=== PATIENT | male | born 1985 | race Caucasian/White ===

== ENCOUNTER 2017-05-07 19:11 | Emergency (ER) | payer OTHER ==
[~2017-05-07] VITALS: Ht 165.1 cm; Wt 82.2 kg
[~2017-05-07 19:11] MED LIST: ABL5 PO; ADD/10 PO; EFFSR150 PO; FENO48TA9 PO
[2017-05-07 19:14] VITALS: BP 147/104; PULSE 79; TEMP 36.7; O2SAT 99; Ht 165.1 cm; Wt 82.2 kg
[2017-05-07] MEDS ORDERED: OXYCODONE HCL IR 5 MG TAB (IMMEDIATE RELEASE) PO STA (19:24)
[2017-05-07] MEDS ORDERED: OXYCODONE IR HOME PACK PO STA (19:56)
--- NOTE | 2017-05-07 20:15 | DIAGNOSTIC IMAGING REPORT ---
LEFT HAND MIN 3 VIEWS ROUTINE HISTORY: 32 years-old Male left 5th digit pain s/p striking window COMPARISON: None available TECHNIQUE: 3 views of the left hand FINDINGS: There is an acute mildly impacted and angulated fracture involving the distal metadiaphyseal portion of the fifth metacarpal with apex dorsal angulation of approximately 20 degrees. No significant displacement. Moderate surrounding soft tissue swelling is noted. No additional acute fracture or dislocation. No opaque foreign body. IMPRESSION: Acute mildly impacted and angulated fracture of the distal fifth metadiaphyseal metacarpal. The above report was generated using voice recognition software. It may contain grammatical, syntax or spelling errors. Electronically signed by: Ranjan Grimes M.D. 05/07/2017 8:14 PM Dictated Date/Time: 05/07/2017 8:12 PM
[2017-05-07] MEDS ORDERED: OXYC1TAB3 PO (20:18)
--- NOTE | 2017-05-07 20:18 | EMERGENCY ROOM VISIT NOTE ---
History First contact with patient: 19:20 Chief Complaint: HAND PAIN/INJURY Stated Complaint: PAIN IN LEFT HAND History of Present Illness The patient is a 32 year old male who presents to the Emergency Room via private vehicle with complaints of "pain and left hand". The patient states that just prior to arrival, he was applying [place] hot sauce, the food, and immediately began feeling a burning sensation in his mouth, and swung his left hand and struck the window accidentally. He is now having left hand pain at the base of the left fifth metacarpal. He rates the current pain as a 9.5/10. He is right-handed. Review of Systems A complete 6-point Review of Systems was discussed with the patient, with pertinent positives and negatives listed in the History of Present Illness. All remaining Review of Systems questions can be considered negative unless otherwise specified. Past Medical/Surgical History No pertinent. Social History Smoking Status: Current Every Day Smoker Marital Status: single Occupation Status: employed Current/Historical Medications Scheduled PRN Oxycodone Ir (Roxicodone Ir), 1-2 TAB PO Q6 PRN for Pain Physical Exam Vital Signs Date Time Temp Pulse Resp B/P (MAP) Pulse Ox O2 Delivery O2 Flow Rate FiO2 05/07/17 19:14 36.7 79 18 147/104 99 Room Air Physical Exam VITAL SIGNS - Vital signs and nursing notes were reviewed. Patient is afebrile , hypertensive at 147/104, non-tachycardic and is saturating well on room air at 99%. GENERAL -32-year-old male appearing his stated age who is in no acute distress. Communicates well with provider and answers questions appropriately. SKIN - Without rashes. No petechial rashes. There is slight edema noted over the base of the left fifth metacarpal. HEAD - NC/AT. EXTREMITIES - No clubbing or peripheral cyanosis. No pretibial edema present. He is neurovascularly intact in the extremity is. Palpable deformity is noted above. +5/5 strength noted in UE/LE bilaterally. Medical Decision & Procedures ER Provider Diagnostic Interpretation: LEFT HAND MIN 3 VIEWS ROUTINE HISTORY: 32 years-old Male left 5th digit pain s/p striking window COMPARISON: None available TECHNIQUE: 3 views of the left hand FINDINGS: There is an acute mildly impacted and angulated fracture involving the distal metadiaphyseal portion of the fifth metacarpal with apex dorsal angulation of approximately 20 degrees. No significant displacement. Moderate surrounding soft tissue swelling is noted. No additional acute fracture or dislocation. No opaque foreign body. IMPRESSION: Acute mildly impacted and angulated fracture of the distal fifth metadiaphyseal metacarpal. The above report was generated using voice recognition software. It may contain grammatical, syntax or spelling errors. Electronically signed by: Ranjan Grimes M.D. 05/07/2017 8:14 PM Dictated Date/Time: 05/07/2017 8:12 PM Medications Administered Medications (Trade) Dose Ordered Sig/Umair Route Start Time Stop Time Status Last Admin Dose Admin Oxycodone HCl (Roxicodone Immediate Rel Tab) 10 mg NOW STAT PO 05/07/17 19:24 05/07/17 19:26 DC 05/07/17 19:36 10 MG Medical Decision Patient was seen and evaluated as above. After obtaining a thorough history and physical examination radiographs were obtained, and he was given 10 mg of oxycodone immediate release. He is reevaluated, was feeling slightly better with hand radiograph results as above. Prompt ulnar gutter Ortho-Glass splint was applied with good fit. He is reevaluated and feeling slightly better. 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 I will provide him with a work excuse in the time being. He is to follow-up with orthopedics. He is to return for worsening. He is neurovascularly intact post- splinting. He was educated upon worrisome symptoms which to return, had questions about discharge, and was discharged home in good condition. He will be given a short course of pain medication. In the evaluation and treatment of this patient, the following differential diagnoses were considered: Wrist Sprain, Wrist Fracture, Wrist Dislocation, Scapholunate Dissociation, Carpal Fracture, Metacarpal Fracture, Radial Styloid Process Fracture, Ulnar Styloid Process Fracture, or Carpal Tunnel Syndrome. [place] Drug Monitoring Program Search Results: patient reviewed within database, no issues identified Medication Reconcilliation Current Medication List: was personally reviewed by me Blood Pressure Screening Patient's blood pressure: Elevated blood pressure Blood pressure disposition: Elevated BP felt to be situational Impression Primary Impression: Closed fracture of 5th metacarpal Departure Information Dispostion Home / Self-Care Condition GOOD Prescriptions Oxycodone Ir (Roxicodone Ir) 5 Mg Tab 1-2 TAB PO Q6 Y for Pain, #15 TAB For Initial Treatment Prov: Cipriano Turcios PA-C 05/07/17 Referrals Carlitos Maddox M.D. (MEDICAL) (PCP) Torito Maki D.O. Patient Instructions My [facility] Additional Instructions You have been treated in the Emergency Department for Wrist Pain/hand pain. You have received pain medicine in the emergency department which impairs your ability to operate a vehicle. It is illegal for you to drive after receiving these medicines. You have been prescribed Oxy IR to be used for pain control. This is a narcotic medication. You cannot drive or consume alcohol while on this medicine. This medicine should only be used for pain that cannot be controlled with over-the- counter pain medicines. For pain control, you can use the following [id number] medicines (if >12 yo): - Regular strength (325mg/tab) Tylenol (acetaminophen) 2 tabs every 4-6 hours as needed. Do not exceed 12 tablets in a 24 hour period. Avoid taking more than 3 grams (3000 mg) of Tylenol per day. This includes any other sources of acetaminophen you may take on a regular basis. - Regular strength (200 mg/tab) Advil (ibuprofen) 1-2 tabs every 4-6 hours as needed. Do not exceed a dose of 3200 mg per day. If this is a recent injury (<24 hrs), ice can be applied to the area of pain for the first 3 days to help decrease pain and inflammation. You have been provided the number for an Orthopaedic Surgeon. You should call this number as soon as possible to establish a follow-up visit from today's Emergency Department visit. Keep the brace/splint in place until evaluated by Orthopedics. Return to the Emergency Department if your current symptoms worsen despite treatment course outlined above, or if you develop any of the following symptoms : intractable pain despite aforementioned treatment course or new onset of numbness or tingling of the fingers. Please return to the emergency department with any/concerning symptoms.
== END 2017-05-07 20:33 | disposition home or self-care (01) ==
LOC: C.EDB 19:13 → C.EDD 20:33
DX: S62.357A Nondisplaced fracture of shaft of fifth metacarpal bone, left hand, initial encounter for closed fracture (principal); W22.09XA Striking against other stationary object, initial encounter; F17.210 Nicotine dependence, cigarettes, uncomplicated

== ENCOUNTER 2017-09-24 13:07 | Emergency (ER) | payer OTHER ==
[~2017-09-24] VITALS: Ht 165.1 cm; Wt 79.2 kg
[~2017-09-24 13:07] MED LIST changes: -ABL5 PO; -ADD/10 PO; -EFFSR150 PO; -FENO48TA9 PO; +OXYC1TAB3 PO
[2017-09-24 13:27] VITALS: Ht 165.1 cm; Wt 79.2 kg
[2017-09-24] MEDS ORDERED: ALBUT/IPRATROP 3MG/0.5MG NEB 3 ML VIAL INH STA (14:58)
[2017-09-24 15:10] VITALS: BP 132/92; PULSE 81; TEMP 37.4; O2SAT 99
--- NOTE | 2017-09-24 15:26 | DIAGNOSTIC IMAGING REPORT ---
CHEST 2 VIEWS ROUTINE CLINICAL HISTORY: productive cough dyspnea COMPARISON STUDY: 06/02/2009 FINDINGS: The bones soft tissues and hemidiaphragms are normal. The cardiomediastinal silhouette is normal. The lungs are clear. The pulmonary vasculature is normal. IMPRESSION: Negative chest. The above report was generated using voice recognition software. It may contain grammatical, syntax or spelling errors. Electronically signed by: Christopher Stewart M.D. 09/24/2017 3:24 PM Dictated Date/Time: 09/24/2017 3:24 PM
--- NOTE | 2017-09-24 15:39 | EMERGENCY ROOM VISIT NOTE ---
History First contact with patient: 14:49 Chief Complaint: COUGH Stated Complaint: COUGH, SNEEZING, CHEST PAIN, FEVER, PAIN W COUGH Nursing Triage Summary: "I have an intense cough" since Thursday. Headache, joint pain, burning with cough, bodyaches, SOB. productive cough at times. took Tylenol at 0530 History of Present Illness The patient is a 32 year old male who presents to the Emergency Room with complaints of a vicious cough since Thursday. The patient states he has been sick for the past 4 days. The cough is occasionally productive of phlegm, but not always. He states he feels that his entire back muscles have been strained and he is noticing some straining in his chest wall with coughing. The patient states he has also been experiencing sore throat, chills, intermittent fever, the highest of 1-1.7F, runny nose, sneezing, running in the chest, difficulty breathing, nausea, loose stool, and vomiting associated with coughing. The patient states he has been taking honey, and other natural OTC remedies, and yesterday began taking OTC cold and flu medication which does have acetaminophen. He took one dose of cold medicine yesterday and half a dose today to proximal minimally 5:30 this morning. The patient did get an influenza vaccination this year. He denies any urinary symptoms or abdominal pain. Review of Systems A complete 10 point review of systems was reviewed with the patient with pertinent positives and negatives as per history of present illness. All else were negative. Past Medical/Surgical History None Social History Smoking Status: Current Every Day Smoker Smokeless Tobacco Use: No Alcohol Use: other (0.5 pint vodka per day) Drug Use: none Marital Status: single Housing Status: lives with family Occupation Status: employed Current/Historical Medications Scheduled PRN Albuterol Hfa (Ventolin Hfa), 2 PUFFS INH QID PRN for Wheezing Benzonatate (Tessalon Perles), 200 MG PO TID PRN for Cough Physical Exam Vital Signs Date Time Temp Pulse Resp B/P (MAP) Pulse Ox O2 Delivery O2 Flow Rate FiO2 09/24/17 15:10 37.4 81 132/92 99 Nebulizer 09/24/17 13:31 97 Room Air 09/24/17 13:27 37.2 94 20 144/103 99 Room Air Physical Exam VITALS: Vitals are noted on the nurse's note and reviewed by myself. Vital signs stable. GENERAL: This is a 32-year-old white male, in no acute distress, nondiaphoretic , well-developed well-nourished. SKIN: The skin was without rashes, erythema, edema, or bruising. There is no tenting of the skin. Capillary reflex less than 2 seconds. HEAD: Normocephalic atraumatic. EARS: External auditory canals clear, tympanic membranes pearly orr without erythema or effusion bilaterally. EYES: Pupils equal round and reactive to light and accommodation. Conjunctivae without injection, sclerae without icterus. Extraocular movements intact. NOSE: Patent, turbinates without inflammation, but rhinorrhea noted. No sinus tenderness. MOUTH: Mucous membranes moist. Tonsils are not enlarged. Pharynx without erythema or exudate. Uvula midline. Airway patent. Tongue does not deviate. NECK: Supple without nuchal rigidity. No lymphadenopathy. No thyromegaly. Cervical spine is nontender. No JVD. HEART: Regular rate and rhythm without murmurs gallops or rubs. LUNGS: Clear to auscultation bilaterally without wheezes, rales or rhonchi. No dullness to percussion. No retractions or accessory muscle use. ABDOMEN: Positive bowel sounds x 4. Normal tympanic percussion. Soft, nontender, without masses or organomegaly. Chavez sign negative. No guarding or rebound tenderness. MUSCULOSKELETAL: No muscle atrophy, erythema, or edema noted. Full range of motion without joint tenderness in all extremities. No tenderness to palpation. Normal gait. Strength 5/5 throughout. NEURO: Patient was alert and oriented to person place and time. Normal sensation to light and sharp touch. Deep tendon reflexes 2+ throughout. No focal neurological deficits. Medical Decision & Procedures ER Provider Diagnostic Interpretation: CHEST 2 VIEWS ROUTINE CLINICAL HISTORY: productive cough dyspnea COMPARISON STUDY: 06/02/2009 FINDINGS: The bones soft tissues and hemidiaphragms are normal. The cardiomediastinal silhouette is normal. The lungs are clear. The pulmonary vasculature is normal. IMPRESSION: Negative chest. The above report was generated using voice recognition software. It may contain grammatical, syntax or spelling errors. Electronically signed by: Christopher Stewart M.D. 09/24/2017 3:24 PM Dictated Date/Time: 09/24/2017 3:24 PM Medications Administered Medications (Trade) Dose Ordered Sig/Umair Route Start Time Stop Time Status Last Admin Dose Admin Albuterol/ Ipratropium (Duoneb) 3 ml NOW STAT INH 09/24/17 14:58 09/24/17 15:00 DC 09/24/17 15:06 3 ML ED Course The patient was seen and evaluated as above. Chest x-ray ordered and performed. This was reviewed by myself and radiologist. Findings noted above. The patient was given DuoNeb treatment. He did note improvement in his symptoms with this medication. I discussed findings of workup with the patient at bedside. I did provide him with the option for performing influenza testing, however because his symptoms have been ongoing for 4 days, he would not qualify for treatment anyway. The patient declines testing. Discharge instructions reviewed, the patient was discharged home in good condition. Medical Decision This is a 32-year-old male patient presents to the emergency department today complaining of illness 4 days. He states he has been experiencing increased failure cough sometimes with and sometimes without coughing up sputum. Patient states he has been experiencing some severe muscle pains in his back and chest. He has had a sore throat, chills, and fever as high as 101.7 in addition to upper respiratory infection symptoms. Patient has taken very few medications for his symptoms, and states symptoms seem to be worsening over the past 2 days. He is concerned he could be expecting pneumonia or bronchitis. Chest x- ray did rule out pneumonia, the patient's symptoms improved with a nebulizer treatment. Because the patient has been sick for 4 days, I do not feel that influenza testing at this time is necessary. I do suspect an influenza-like illness. I did offer lab workup, but the patient has been afebrile while here in the emergency department. He declines workup at this time, and will be treated symptomatically and supportively. Differential diagnosis includes influenza, pneumonia, bronchitis, tracheobronchitis, upper respiratory infection, gastroenteritis, pharyngitis, strep pharyngitis, musculoskeletal pain, costochondritis, malignancy, and others Medication Reconcilliation Current Medication List: was personally reviewed by me Blood Pressure Screening Patient's blood pressure: Normal blood pressure Impression Primary Impression: Influenza-like illness Departure Information Dispostion Home / Self-Care Condition GOOD Prescriptions Benzonatate (Tessalon Kwabena) 200 Mg Cap 200 MG PO TID Y for Cough, #30 CAP Prov: Linda Sanchez PA-C 09/24/17 Albuterol Hfa (VENTOLIN HFA) 200 Puffs/51250 Mcg Aers 2 PUFFS INH QID Y for Wheezing, #1 INHALER Prov: Linda Sanchez PA-C 09/24/17 Referrals Carlitos Maddox M.D. (MEDICAL) (PCP) Patient Instructions ED Flu, My [facility] Additional Instructions You were seen and evaluated in the emergency department today for a cough, URI symptoms, and body aches. I do feel that based on your symptoms, and the duration of illness, this is likely viral in nature - bronchitis vs. influenza. As discussed, antibiotics will not treat viral illness. You have been provided with an albuterol inhaler to use for wheezing or difficulty breathing. Use this inhaler 1-2 puffs every 4-6 hours as needed. If you find that your symptoms are not improving with the use of the inhaler, or if you find that you need to use the inhaler longer than 1 week, return to the ED or follow-up with your PCP. You have been given benzonatate (Tessalon Pearles) to be used for coughing. These should be taken 1 capsule up to 3 times per day as needed for coughing. Do not take this medication more than prescribed. You may use this medication in addition to OTC cough medications. For your sore throat, you may use a 1:1 mixture of liquid Benadryl and liquid Maalox. Gargle and spit this mixture. It will help to soothe the throat and provide some relief. Drink warm tea with honey and lemon, as this will also help to soothe the throat. Gargle with salt water frequently. As discussed, you should take OTC Mucinex and/or Sudafed for your symptoms. Please do not exceed the recommended daily dosages. Ibuprofen(Motrin, Advil) may be used for fever or pain. Use 600mg every six hours as needed. Take with food. Avoid using more than 2400mg in a 24 hour period. Do not use 2400mg per day for more than three consecutive days without physician direction. Prolonged inappropriate use can lead to stomach upset or ulcers. You may take Naproxen 1-2 tablets twice daily in place of ibuprofen. This medication will help with the swelling in your sinuses. (AND/OR) Acetaminophen(Tylenol) may be used for fever or pain. Use 1000mg every six hours as needed. Avoid using more than 3000mg in a 24 hour period. *You may alternate ibuprofen/Tylenol every 3-4 hours for increased fever/pain control. For congestion, you may use Flonase OTC. You may want to consider zinc, echinacea, and vitamin C to help boost your immunity. Please get plenty of rest and drink plenty of fluids. Please return or follow-up with your PCP in 1 week if you are not experiencing any improvement in your symptoms. No work until you are fever-free without medication for at least 24 hours. Return to the emergency department for coughing up blood, difficulty breathing, chest pain, worsening symptoms, or for other concerns.
[2017-09-24] MEDS ORDERED: VNTHFA/IN INH (15:45)
[2017-09-24] MEDS ORDERED: BENZ1CAP90 PO (15:45)
== END 2017-09-24 16:03 | disposition home or self-care (01) ==
LOC: C.EDB 13:08 → C.EDD 16:03
DX: R05 Cough (principal); J02.9 Acute pharyngitis, unspecified; R50.9 Fever, unspecified; F17.210 Nicotine dependence, cigarettes, uncomplicated

== ENCOUNTER 2023-10-23 15:51 | Inpatient (IN) ==
[2023-10-23] MEDS ORDERED: Ativan IV Alcohol Withdrawal--Active Protocol IV PRN (16:25)
[2023-10-23] MEDS ORDERED: LORazepam 1 MG in SYRINGE 0.5 ML IV PRN (16:25)
[2023-10-23] MEDS ORDERED: LORazepam 2 MG in SYRINGE 1 ML IV PRN (16:25)
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
[2023-10-23] MEDS: FOLIC ACID 1 MG in SYRINGE 9.8 ML IV SCH (17:04)
[2023-10-23] MEDS: THIAMINE HCL 100 MG in SYRINGE 9 ML IV SCH (17:06)
[2023-10-23] MEDS: LORazepam 1 MG/1 ML SYR ED Inj Use ONE (17:10)
[2023-10-23] MEDS: LORazepam 3 MG in SYRINGE 1.5 ML IV PRN (17:10)
[2023-10-23 17:14] LABS: Albumin Globulin Ratio 1.1 (0.9-2); Albumin Level 4.1 gm/dl (3.4-5.0); BUN Creatinine Ratio 19.8 (10-20); Bilirubin,Total 8.3 mg/dl (0.2-1.0); Calcium 9.5 mg/dl (8.6-10.3); Creatinine Clr Calc Pharmacy 121.9 ml/min; Est GFR (African American) 130.7 ml/min; Est GFR (Non-African American) 112.7 ml/min; Globulin 3.6 gm/dl (2.5-4.0); Magnesium 1.2 mg/dl (1.7-2.4); Potassium 3.5 mmol/L (3.5-5.1); Total Protein 7.7 gm/dl (6.0-8.3)
[2023-10-23 17:38] LABS: Basophils # (auto) 0.02 K/uL (0.00-0.20); Basophils % (auto) 0.3 %; Eosinophils # (auto) 0.01 K/uL (0.00-0.50); Eosinophils % (auto) 0.2 %; Hematocrit (blood only) 41.3 % (42.0-52.0); Hemoglobin 14.2 g/dl (14.0-18.0); Immature Granulocytes # (auto) 0.02 K/uL (0.01-0.20); Immature Granulocytes % (auto) 0.3 %; Lymphocytes # (auto) 0.41 K/uL (1.20-3.40); Lymphocytes % (auto) 6.5 %; Mean Corpuscular Hemoglobin 32.3 pg (25.0-34.0); Mean Corpuscular Hgb Conc 34.4 g/dL (32.0-36.0); Mean Corpuscular Volume 93.9 fL (80.0-100.0); Mean Platelet Volume 12.6 fL (9.4-12.4); Monocytes % (auto) 6.4 %; Neutrophils # (auto) 5.43 K/uL (1.40-6.50); Neutrophils % (auto) 86.3 %; Platelet Count 49 K/uL (130-400); RDW Coefficient of Variation 12.7 % (11.5-14.5); RDW Standard Deviation 43.8 fL (36.4-46.3); White Blood Count 6.29 K/ul (4.8-10.8)
[2023-10-23] MEDS: MAGNESIUM SULFATE / D5W 1 GM/100 ML BAG IV STA (18:13)
[2023-10-23] MEDS: LORazepam 1 MG/1 ML SYR ED Inj Use IV STA ×3 (18:32→22:14)
--- NOTE | 2023-10-23 18:57 | History & Physical Report ---
Date of Service October 23, 2023 Assessment & Plan (1) Alcohol withdrawal: Plan: Heavy h/o alcohol use with last drink approximately 48 hours ago. He was in rehab when he started to withdraw and was sent in. Several doses of Ativan has not improved the situation and puts him at risk of respiratory depression. For this reason, he is being transferred to the ICU for precedex infusion and additional treatment as needed with close monitoring. Cont IVF and thiamine and folate, first dose given in the ICU. (2) Alcohol addiction: Plan: per history, last drink was 48 hours prior to admission. (3) Rash and other nonspecific skin eruption: Plan: He was recently seen in urgent care because of a dermatitis on his feet and was started on Bactrim, which appeared to cause this diffuse rash after 5 days of use. He was switched to Keflex and doxycycline by Dr. Coats on 10/06. When he went to [facility] he was started on prednisone per his . Uncertain if that was actually helping his diffuse rash, however, the steroids are not ideal with ongoing delirium. Would hold off on this now and continue supportive care ef forts for the rash such as benadryl PRN or moisturizer. There is a dermatitis on his feet but there does not appear to be evidence of active cellulitis infection at this time. No further abx recommended at this time. (4) Tobacco use disorder: Plan: history of this. Patient declines active use. (5) Primary hypertension: Plan: patient has a history of this and was previously on metoprolol, switched to Avapro by PCP but didn't like it as it made his legs feel rubbery so he went back on the metoprolol which is 25mg PO daily per PCP notes. (6) PTSD (post-traumatic stress disorder): Plan: history of this (7) Depression: Plan: history of this with need for hospitalization in the distant past. DVT proph: SCDs, Lovenox GI proph: per ICU team Full Code Dispo- to ICU. I spent a total of75 minutes coordinating, documenting, and providing care for this patient excluding time spent in the performance of separately billed services DO Migdalia Isabel Hospitalist History of Present Illness Chief Complaint: alcohol withdrawal Primary Care Provider: [facility] 38 yo M with alcoholism presents after developing symptoms of alcohol withdrawal at [facility] rehab. He was admitted to rehab on Thu and reports that his last drink was on . He denies any smoking or drug use. He is delirious and combative having now received multiple doses of Ativan making him an unreliable historian. His body is covered in a scattered erythematous rash including on his trunk including his front and back and on his arms and legs including his feet. He reports having recently taken bactrim (has an allergy to this listed-hives) which was dispensed on 10/01 per the outside dispensing history. His showed up at the end of the exam and confirmed that he was started on prednisone on Thu at [facility] for this rash which is two weeks old and possibly related to Bactrim use at the end of September. He does suffer from a chronic dermatitis to his feet. He received Ativan IV initially 2/2 delirium symptoms. He was given 3mg IV and then another 2mg IV around 5p and 6:30p, respectively. The second dose was administered after he was combative with a RN. Around 7:30p he was still very agitated, hallucinating and was very tremulous and anxious with stacatto speech. He was given another 5mg IV. I discussed the case and potential treatment options wtih both the marketing regional consultant ICU provider and the ER physician. Admission order to the ICU was placed. After 30 minutes, he was still pulling out his IVs shaky and tremulous. was at bedside and so was security. An additional 5mg IV Ativan was administered while awaiting a bed in the ICU. I explained the situation to his who was updated on the plan and verbalized understanding. All questions were answered to her satsfaction. I did review the outpatient record Allergies Allergy/AdvReac Type Severity Reaction Status Date / Time sulfamethoxazole Allergy Intermediate Hives Verified 10/23/23 18:01 [From Bactrim] trimethoprim [From Bactrim] Allergy Intermediate Hives Verified 10/23/23 18:01 Home Medications Medication Instructions Recorded Confirmed Type triamcinolone acetonide 0.1 % 1 applic topical BID 11/06/22 10/23/23 History topical cream acetaminophen 325 mg tablet 650 mg PO QID PRN PAIN/HEADACHE 10/23/23 10/23/23 History (Tylenol) aluminum-mag hydroxide-simethicone 20 ml PO BID PRN INDIGESTION/GERD 10/23/23 10/23/23 History 200 mg-200 mg-20 mg/5 mL oral susp ajrapvj-dxubrglhbefnn-rjuuguac 250 2 tab PO DAILY PRN Headache 10/23/23 10/23/23 History mg-250 mg-65 mg tablet (Excedrin Extra Strength) bacitracin 500 unit/gram topical 1 applic topical QID PRN SKIN 10/23/23 10/23/23 History ointment INFECTION/ABRASION calcium carbonate 500 mg calcium 1,000 mg PO QID PRN Indigestion 10/23/23 10/23/23 History (1,250 mg) chewable tablet camphor-menthol 0.2 %-3.5 % 1 applic topical QID PRN Muscle 10/23/23 10/23/23 History topical gel Pain clonidine HCl 0.1 mg tablet 0.1 mg PO TID PRN 10/23/23 10/23/23 History ANXIETY/RESTLESSNESS/PULSE>70/BP>100/70 clotrimazole 1 % topical cream 1 applic topical BID 10/23/23 10/23/23 History cyanocobalamin (vitamin B-12) 1,000 mcg PO DAILY 10/23/23 10/23/23 History 1,000 mcg tablet (Vitamin B-12) diazepam 10 mg tablet (Valium) 10 mg PO BID 10/23/23 10/23/23 History diazepam 10 mg tablet (Valium) 10 mg PO Q8H PRN DETOX 10/23/23 10/23/23 History dicyclomine 20 mg tablet 20 mg PO TID PRN GI CRAMPS/SPASMS 10/23/23 10/23/23 History diphenhydramine HCl 25 mg tablet 25 mg PO Q6H PRN ALLERGIES/RASH 10/23/23 10/23/23 History (Complete Allergy) diphenhydramine HCl 50 mg capsule 50 mg PO Q6H PRN ALLERGIES/RASH 10/23/23 10/23/23 History docusate sodium 100 mg capsule 100 mg PO DAILY PRN Constipation 10/23/23 10/23/23 History doxycycline hyclate 100 mg capsule 100 mg PO BID 10/23/23 10/23/23 History eucalyptus-menthol oral mucosal 1 artemio mucous membrane Q2H PRN Sore 10/23/23 10/23/23 History lozenge Throat famotidine 20 mg tablet 20 mg PO DAILY PRN UPSET 10/23/23 10/23/23 History STOMACH/INDIGESTION folic acid 1 mg tablet 1 mg PO DAILY 10/23/23 10/23/23 History guaifenesin 400 mg tablet (Mucus 400 mg PO Q6H PRN COUGH/MUCOUS 10/23/23 10/23/23 History Relief) hydrocortisone 1 % topical cream 1 applic topical BID PRN 10/23/23 10/23/23 History ITCHING/RASH hydroxyzine pamoate 50 mg capsule 50 mg PO TID PRN Anxiety 10/23/23 10/23/23 History ibuprofen 600 mg tablet 600 mg PO Q6H PRN PAIN/HEADACHE 10/23/23 10/23/23 History loperamide 2 mg tablet (Imodium 4 mg PO BID PRN Diarrhea 10/23/23 10/23/23 History A-D) loratadine 10 mg tablet (Claritin) 10 mg PO DAILY PRN 10/23/23 10/23/23 History CONGESTION/ALLERGIES magnesium hydroxide 400 mg/5 mL 30 ml PO DAILY PRN Constipation 10/23/23 10/23/23 History oral suspension (Milk of Magnesia) magnesium sulfate (bulk) 100 % 1 applic topical BID 10/23/23 10/23/23 History crystals (Epsom Salt) melatonin 5 mg tablet 5 mg PO HS PRN Sleep 10/23/23 10/23/23 History metoprolol succinate 25 mg 25 mg PO QAM 10/23/23 10/23/23 History tablet,extended release 24 hr multivitamin 1 tab PO DAILY 10/23/23 10/23/23 History naloxone 4 mg/actuation nasal spray 1 mg intranasal DAILY PRN OPIATE 10/23/23 10/23/23 History OVERDOSE omeprazole 20 mg capsule,delayed 20 mg PO DAILY 10/23/23 10/23/23 History release ondansetron HCl 8 mg tablet 8 mg PO Q8H PRN NAUSEA/VOMITING 10/23/23 10/23/23 History permethrin 5 % topical cream 1 applic topical DAILY PRN RASH ON 10/23/23 10/23/23 History (Elimite) FEET & HEAD polyethylene glycol 3350 17 17 g PO DAILY PRN Constipation 10/23/23 10/23/23 History gram/dose oral powder (Miralax) prednisone 20 mg tablet 20 mg PO DAILY 10/23/23 10/23/23 History simethicone 80 mg chewable tablet 160 mg PO BID PRN GAS/CRAMPS 10/23/23 10/23/23 History thiamine HCl (vitamin B1) 100 mg 100 mg PO DAILY 10/23/23 10/23/23 History tablet (Vitamin B-1) vitamin A and D 1 applic topical QID PRN SKIN 10/23/23 10/23/23 History IRRITATION/PROTECTION Past Med/Surg History Medical History (Updated 10/23/23 @ 20:09 by Ana Cristina Amaro DO) Depression Tobacco use disorder Chews tobacco Finger deformity, acquired Primary hypertension Dyslipidemia Hypertriglyceridemia Alcohol addiction Chicken pox Hand fracture Surgical History (Updated 10/23/23 @ 20:03 by Ana Cristina Amaro DO) History of third molar tooth extraction Family History Grandmother (Maternal) Cancer Mother Mental disorder Hypertension Social History Smoking Status: Former smoker Tobacco Type: Cigarettes Do You Dip or Chew Tobacco: Yes (Former quit 02.02.2015 ); Hx Alcohol Use: Yes (1/2 pint to pint of vodka daily ) Preferred Language: Kazakh marital status: Feels Safe at Home: Yes Physical Exam Physical Exam: CONSTITUTIONAL: WNWD, vitals 145/106, HR 105bpm, RR 22, T 36.9C, 93% on RA, somewhat combative/agitated and tremulousness surrounded by security guards there to try and calm the situation. Patient's speech was intact with voice shaky, he is delirious and occasionally hallucinates, oriented to place and self but not time (said it is 2003). Actively trying to remove his medical devices. Limited ability to examine 2/2 to these issues. EYES: normal conjunctivae, no scleral icterus ENT: external ear and nose normal, MMM NECK: trachea midline RESPIRATORY: clear to auscultation bilaterally, no crackles, rales or wheezes, normal respiratory effort CARDIOVASCULAR: tachy rate and reg rhythm, S1 and 2 heard without murmurs, gallops or rubs, no JVD, no peripheral edema CHEST: inspection of chest was normal GASTROINTESTINAL: soft, nontender, ND, no guarding MUSCULOSKELETAL: strength 5/5 throughout, head is normocephalic and atraumatic SKIN: warm and dry, + rash as noted in HPI. NEUROLOGIC: CN 2-12 grossly intact, no sensory deficit, normal cognition, normal speech which is pressured, appears anxious and shaky, tremulous PSYCHIATRIC: alert intermittently uncooperative, intermittently combative with staff Results & Data Results & Data Vital Signs (Past 12 Hours) Vital Signs Temp Pulse Resp BP Pulse Ox O2 Del Method 10/23/23 16:38 105 H 10/23/23 15:58 36.9 C 99 H 22 145/106 H 93 Room Air Laboratory Results Short CBC 10/23/23 Range/Units 16:04 WBC 6.29 (4.8-10.8) K/ul Hgb 14.2 (14.0-18.0) g/dl Hct 41.3 L (42.0-52.0) % Plt Count 49 L (130-400) K/uL BMP 10/23/23 16:04 Sodium 134 L Potassium 3.5 Chloride 96 L Carbon Dioxide 25 BUN 16 Creatinine 0.81 Glucose 132 H Calcium 9.5 Liver Function 10/23/23 Range/Units 16:04 Total Bilirubin 8.3 H (0.2-1.0) mg/dl AST 255 H (13-39) U/L ALT 104 H (7-52) U/L Alkaline Phosphatase 210 H (34-104) U/L Albumin 4.1 (3.4-5.0) gm/dl Medications Administered Current Inpatient Medications Folic Acid 1 mg/ Syringe 10 mls @ 5 mls/min IV QAM CHICO Stop: 11/22/23 16:29 Last Admin: 10/23/23 17:04 Dose: 5 mls/min Thiamine HCl 100 mg/ Syringe 10 mls @ 2 mls/min IV QAM CHICO Stop: 11/22/23 16:29 Last Admin: 10/23/23 17:06 Dose: 2 mls/min Sodium Chloride (Nss) 1,000 mls @ 125 mls/hr IV .Q8H CHICO Stop: 10/24/23 10:59 Lorazepam 1 mg/ Syringe 1 mls @ 2 mls/min IV Q6H PRN PRN Reason: Anxiety/Agitation/CIWA 6+ Stop: 11/22/23 18:54 (1) Alcohol withdrawal Complication of substance-induced condition: with delirium Qualified Code(s): F10.931 - Alcohol use, unspecified with withdrawal delirium
[2023-10-23] MEDS ORDERED: STAT IV Infusion **Titration per Protocol STA (20:13)
[2023-10-23] MEDS: LORazepam 3 MG in SYRINGE 1.5 ML IV ONE (20:14)
[2023-10-23] MEDS: LORazepam 2 MG in SYRINGE 1 ML IV STA (20:14)
[2023-10-23] MEDS ORDERED: FAMOTIDINE 20 MG TAB PO PRN (20:40)
[2023-10-23] MEDS: dexMEDEtomidine 200 MCG/50 ML BAG IV SCH (20:42)
[2023-10-23] MEDS: PHENobarbital sodium 65 MG/ML VIAL IV STA (21:39)
[2023-10-23] MEDS ORDERED: LORazepam 1 MG TAB PO PRN ×3 (22:47)
[2023-10-23] MEDS ORDERED: Ativan PO Alcohol Withdrawal--Active Protocol PO PRN (22:47)
[2023-10-23] MEDS: THIAMINE HCL 500 MG in SODIUM CHLORIDE 0.9% 50 ML IV SCH (23:03)
[2023-10-23] MEDS: SODIUM CHLORIDE 0.9% 1,000 ML IV SCH (23:03)
[2023-10-24] MEDS ORDERED: PHENobarbital sodium 65 MG/ML VIAL IV PRN (00:42)
--- NOTE | 2023-10-24 00:58 | Critical Care Consultation ---
Date of Consultation October 23, 2023 Assessment & Plan (1) Alcohol addiction: (2) Alcohol withdrawal: (3) Hypomagnesemia: (4) Rash and other nonspecific skin eruption: (5) PTSD (post-traumatic stress disorder): Plan Reason Critically Ill: 38 YOM with severe alcohol withdraw requiring Ativan, Precedex, phenobarbital for control of symptoms. Neuro - Delirium Tremens, Alcohol dependance, Anxiety/depression CAM ICU: [facility] - Delirium Tremens- patient is 48 hours into his cessation of ETOH- ETOH level on arrival <10 - Urine tox positive for barbiturates and benzodiazepine- both which he received prior to urine screen - Patient also on Valium at home so likely a tolerance to benzo already established - Phenobarb 260mg IV now- PRN dosing of 130 mg IV for JN equal to or greater than 2- will start oral taper in AM on 10/24/23 - Ativan IV for AWSS scoring - Precedex for stabilization- wean off as able - Thiamin 500mg IV q8 hours- de-escalate when appropriate - Consider pysch consultation when appropriate - Would also recommend getting him back to nursing home rehab Cardiac - No acute needs Respiratory - No acute needs - EtCo2 while receiving multiple sedating medications GI - Abnormal liver enzymes - Likely secondary to ETOH consumption but elevation may also be secondary to reaction to bactrim - will trend as well as obtain INR in am - is without jaundice, but with bili of 8.3- RENAL/LYTES - Electrolyte abnormalities - Replete per ICU protocol - Urinary retention - Place garcia catheter as he has not voided via condom cath and >500ml in bladder - keep in place while sedated- remove when appropriate ENDO - No acute needs HEME - No acute needs Skin: Skin rash eruption following drug administration - This reportedly started as small raised itchy bumps- initial pictures on phone is consistent with macular papular rash- now it is macular with well defined borders- salmon in color - ? Dress vs. other T cell mediated reaction based on timing and rash presentation - continue with prednisone - consider skin punch biopsy if warranted - He is without EOS in WBC, is without oral lesions, and is also without elevation of his renal indices ID - NO concern at this time for acute infectious process LINES/IV ACCESS - PIV, Garcia Continue use of these lines DVT PROPHYLAXIS - SCDS, chemoprophylaxis can be initiated when less of risk of falling and fighting with staff DISPO: ICU until detox symptoms are better controlled and stabilized on 1-2 medication regimen I have personally spent 60 minutes of critical care time in the direct management of this patient. This is a life/limb threatening event. This includes time spent evaluating patient, direct bedside care, chart review, placing orders, interpretation of diagnostic studies, discussion with consultants, patient, and family members, as well as other required patient management activities. This time is exclusive of all separately billable procedures, and teaching time and separate from and in addition to any other critical care service time. Thank you for allowing us to participate in the care of this patient. Please refer to my attending physician's documentation for any further recommendations. History of Present Illness Reason for Consultation: Alcohol withdraw Requesting Physician: Ana Cristina Amaro MD Attending Physician: Ana Cristina Amaro MD History of Present Illness 38 YOM presents to the hospital for concerns of DT, he presented from [facility] and his accompanied by his . The states that he drinks a large handled jug of Vodka every day for the past 10 years that she has known him. He states that he sometimes mixes it with water. His reports that his last drink was 2 days ago. She reports that he has tried to stop in the past without success and that he never had a seizure when stopped drinking. In the EMD the patient was combative kicking and punching at staff, as well as pulling out IV lines and telemetry leads and pulse oximetry. He was initially given 2 and 3 mg Ativan 30 minutes apart, followed by 5 mg Ativan IV 30 minutes later. This remained with poor effect as he remained agitated, hallucinating, trying to get out of bed, tachycardic and tachypneic. On my initial evaluation he was actually trying to eat a telemetry lead and getting up out of his stretcher. He was disoriented to place and illness. He was able to assist in answering some of his questions. While awaiting admission to ICU, was notified by patient's nurse that he has pulled out his IV and once again was kicking and punching at staff and trying to leave. He was placed in 4 point behavioral restraints, I presented to bedside he was yelling and pulling at his restraints as well as hallucinating. He was more tachycardic and tachypneic as well. His Precedex was increased to 1mcg/kg and was given 260mg IV Phenobarb. This had intended effects within 5-10 minutes with patient calming down and only pulling at his restraints occasionally and reduction of HR to the 90s. On arrival to the ICU he was at a JN -1 arousable without tremors, tachycardia, tachypnea- he is still disoriented but markedly improved. Restraints were downgraded on arrival to soft 3 limb and then to soft 2 limb restraints to prevent him from pulling out his IVs. He does also present with macluar rash to his abdomen, arms, legs and thighs. reports that this started last week after he went to urgent care for toe/foot infection where he was given Bactrim. About 1-2 hours after taking the bactrim a small maccular pappluar rash developed that was itchy. He stopped the Bactrim and presented to his PCP- he was initiated on Keflex and doxycycline at that time. The rash continued with no improvment and was then placed on a prednisone dose by his PCP. reports that this started to improve his rash. She also endorses that there was no other mouth ulcers or pain that he would complain about with this rash. CODE: FULL Allergies Allergy/AdvReac Type Severity Reaction Status Date / Time sulfamethoxazole Allergy Intermediate Hives Verified 10/23/23 18:01 [From Bactrim] trimethoprim [From Bactrim] Allergy Intermediate Hives Verified 10/23/23 18:01 Home Medications Medication Instructions Recorded Confirmed Type triamcinolone acetonide 0.1 % 1 applic topical BID 11/06/22 10/23/23 History topical cream acetaminophen 325 mg tablet 650 mg PO QID PRN PAIN/HEADACHE 10/23/23 10/23/23 History (Tylenol) aluminum-mag hydroxide-simethicone 20 ml PO BID PRN INDIGESTION/GERD 10/23/23 10/23/23 History 200 mg-200 mg-20 mg/5 mL oral susp cowaxtm-ejspzjkyqrlnq-fknrffke 250 2 tab PO DAILY PRN Headache 10/23/23 10/23/23 History mg-250 mg-65 mg tablet (Excedrin Extra Strength) bacitracin 500 unit/gram topical 1 applic topical QID PRN SKIN 10/23/23 10/23/23 History ointment INFECTION/ABRASION calcium carbonate 500 mg calcium 1,000 mg PO QID PRN Indigestion 10/23/23 10/23/23 History (1,250 mg) chewable tablet camphor-menthol 0.2 %-3.5 % 1 applic topical QID PRN Muscle 10/23/23 10/23/23 History topical gel Pain clonidine HCl 0.1 mg tablet 0.1 mg PO TID PRN 10/23/23 10/23/23 History ANXIETY/RESTLESSNESS/PULSE>70/BP>100/70 clotrimazole 1 % topical cream 1 applic topical BID 10/23/23 10/23/23 History cyanocobalamin (vitamin B-12) 1,000 mcg PO DAILY 10/23/23 10/23/23 History 1,000 mcg tablet (Vitamin B-12) diazepam 10 mg tablet (Valium) 10 mg PO BID 10/23/23 10/23/23 History diazepam 10 mg tablet (Valium) 10 mg PO Q8H PRN DETOX 10/23/23 10/23/23 History dicyclomine 20 mg tablet 20 mg PO TID PRN GI CRAMPS/SPASMS 10/23/23 10/23/23 History diphenhydramine HCl 25 mg tablet 25 mg PO Q6H PRN ALLERGIES/RASH 10/23/23 History (Complete Allergy) diphenhydramine HCl 50 mg capsule 50 mg PO Q6H PRN ALLERGIES/RASH 10/23/23 10/23/23 History docusate sodium 100 mg capsule 100 mg PO DAILY PRN Constipation 10/23/23 10/23/23 History doxycycline hyclate 100 mg capsule 100 mg PO BID 10/23/23 10/23/23 History eucalyptus-menthol oral mucosal 1 artemio mucous membrane Q2H PRN Sore 10/23/23 10/23/23 History lozenge Throat famotidine 20 mg tablet 20 mg PO DAILY PRN UPSET 10/23/23 10/23/23 History STOMACH/INDIGESTION folic acid 1 mg tablet 1 mg PO DAILY 10/23/23 10/23/23 History guaifenesin 400 mg tablet (Mucus 400 mg PO Q6H PRN COUGH/MUCOUS 10/23/23 10/23/23 History Relief) hydrocortisone 1 % topical cream 1 applic topical BID PRN 10/23/23 10/23/23 History ITCHING/RASH hydroxyzine pamoate 50 mg capsule 50 mg PO TID PRN Anxiety 10/23/23 10/23/23 History ibuprofen 600 mg tablet 600 mg PO Q6H PRN PAIN/HEADACHE 10/23/23 10/23/23 History loperamide 2 mg tablet (Imodium 4 mg PO BID PRN Diarrhea 10/23/23 10/23/23 History A-D) loratadine 10 mg tablet (Claritin) 10 mg PO DAILY PRN 10/23/23 10/23/23 History CONGESTION/ALLERGIES magnesium hydroxide 400 mg/5 mL 30 ml PO DAILY PRN Constipation 10/23/23 10/23/23 History oral suspension (Milk of Magnesia) magnesium sulfate (bulk) 100 % 1 applic topical BID 10/23/23 10/23/23 History crystals (Epsom Salt) melatonin 5 mg tablet 5 mg PO HS PRN Sleep 10/23/23 10/23/23 History metoprolol succinate 25 mg 25 mg PO QAM 10/23/23 10/23/23 History tablet,extended release 24 hr multivitamin 1 tab PO DAILY 10/23/23 10/23/23 History naloxone 4 mg/actuation nasal spray 1 mg intranasal DAILY PRN OPIATE 10/23/23 10/23/23 History OVERDOSE omeprazole 20 mg capsule,delayed 20 mg PO DAILY 10/23/23 10/23/23 History release ondansetron HCl 8 mg tablet 8 mg PO Q8H PRN NAUSEA/VOMITING 10/23/23 10/23/23 History permethrin 5 % topical cream 1 applic topical DAILY PRN RASH ON 10/23/23 History (Elimite) FEET & HEAD polyethylene glycol 3350 17 17 g PO DAILY PRN Constipation 10/23/23 10/23/23 History gram/dose oral powder (Miralax) prednisone 20 mg tablet 20 mg PO DAILY 10/23/23 10/23/23 History simethicone 80 mg chewable tablet 160 mg PO BID PRN GAS/CRAMPS 10/23/23 10/23/23 History thiamine HCl (vitamin B1) 100 mg 100 mg PO DAILY 10/23/23 10/23/23 History tablet (Vitamin B-1) vitamin A and D 1 applic topical QID PRN SKIN 10/23/23 10/23/23 History IRRITATION/PROTECTION Patient History Medical History (Updated 10/23/23 @ 20:09 by Ana Cristina Amaro DO) Depression Tobacco use disorder Chews tobacco Finger deformity, acquired Primary hypertension Dyslipidemia Hypertriglyceridemia Alcohol addiction Chicken pox Hand fracture Surgical History (Updated 10/23/23 @ 20:03 by Ana Cristina Amaro DO) History of third molar tooth extraction Family History Grandmother (Maternal) Cancer Mother Mental disorder Hypertension Social History Smoking Status: Former smoker Tobacco Type: Cigarettes Second Hand Exposure: No; Do You Dip or Chew Tobacco: No; Hx Alcohol Use: Yes Alcohol type: hard liquor Hx Substance Use: No Preferred Language: Malay Lyric Writer Required: No Beliefs That Will Affect Care: None marital status: Current Living Situation: Spouse Other Information That Helps Us Care for You: No Feels Safe at Home: Yes Safety Concerns: Feels Safe At This Time Assistive Devices: None Review of Systems Review of Systems: as per HPI unable to complete secondary to patient mentation Physical Exam Physical Exam: PHYSICAL EXAM: General: awake, hallucinating and combative Head: Normocephalic, atraumatic ENT: PERRLA, EOMI, mucous membranes moist Neuro: AAO x 1, speech clear but inappropriate, agitated and combative, strength intact bilaterally 5/5 and equal all extremities and dermatomes, tremors present Chest: equal rise and fall of the chest, no accessory muscle use, no heaves or thrills, Clear to auscultation, on room air, Cardiac: Regular rate and rhythm, telemetry reviewed- sinus tachycardia, skin warm dry, cap refill <3 seconds, peripheral pulses +2 GI: NABS x 4 quadrants, soft, nontender to palpation, no rebound, guarding or tenderness : Garcia placed on arrival to ICU for urinary retention of > 500 ml Skin: macular salmon colored non raised rash with distinct borders, dry scabs to feet and arms from scratching, peeling of feet Results & Data Results & Data Vital Signs (Past 12 Hours) Vital Signs Temp Pulse Resp BP Pulse Ox O2 Del Method 10/23/23 16:38 105 H 10/23/23 15:58 36.9 C 99 H 22 145/106 H 93 Room Air Laboratory Results Abnormal lab results 10/23/23 10/24/23 Range/Units 16:04 01:06 RBC 4.40 L (4.70-6.10) M/uL Hct 41.3 L (42.0-52.0) % Plt Count 49 L (130-400) K/uL MPV 12.6 H (9.4-12.4) fL Lymph # (Auto) 0.41 L (1.20-3.40) K/uL Sodium 134 L (136-145) mmol/L Chloride 96 L (98-107) mmol/L Anion Gap 13 H (3-11) Glucose 132 H (70-99(Fasting)) mg/dl Magnesium 1.2 L (1.7-2.4) mg/dl Total Bilirubin 8.3 H (0.2-1.0) mg/dl AST 255 H (13-39) U/L ALT 104 H (7-52) U/L Alkaline Phosphatase 210 H (34-104) U/L Urine Barbiturates Pos H (Neg) U Benzodiazepines Scrn Pos H (Neg) Medications Administered Folic Acid 1 mg/ Syringe 10 mls @ 5 mls/min IV QAM [facility] Stop: 11/22/23 16:29 Last Admin: 10/23/23 17:04 Dose: 5 mls/min Documented By: CAM Sodium Chloride (Nss) 1,000 mls @ 125 mls/hr IV .Q8H [facility] Stop: 10/24/23 10:59 Last Admin: 10/23/23 23:03 Dose: 125 mls/hr Documented By: DARIAN Lorazepam 1 mg/ Syringe 1 mls @ 2 mls/min IV Q6H PRN PRN Reason: Anxiety/Agitation/CIWA 6+ Stop: 11/22/23 18:54 Last Admin: 10/24/23 01:33 Dose: 2 mls/min Documented By: DARIAN Dexmedetomidine/Sodium Chloride (Precedex) 200 mcg in 50 mls @ 0.688 mls/hr IV .Q24H [facility]; Protocol Stop: 10/27/23 20:14 Last Admin: 10/24/23 01:40 Dose: 0.04 mcg/kg/hr, 0.7 mls/hr Documented By: DARIAN Co-signed By: OSCAR Titration: 10/24/23 01:40 Dose: Infused Documented By: DARIAN Co-signed By: OSCAR Titration: 10/24/23 01:23 Dose: 0.04 mcg/kg/hr, 0.7 mls/hr Documented By: Titration: 10/24/23 00:42 Dose: 0.04 mcg/kg/hr, 0.8 mls/hr Documented By: Titration: 10/24/23 00:15 Dose: 0.05 mcg/kg/hr, 0.9 mls/hr Documented By: Titration: 10/23/23 21:41 Dose: 0.05 mcg/kg/hr, 1 mls/hr Documented By: Titration: 10/23/23 21:41 Dose: 0.04 mcg/kg/hr, 0.7 mls/hr Documented By: Titration: 10/23/23 20:58 Dose: 0.5 mcg/kg/hr, 9.8 mls/hr Documented By: Admin: 10/23/23 20:42 Dose: 0.4 mcg/kg/hr, 7.9 mls/hr Documented By: CAM Co-signed By: LEELEE Thiamine HCl 500 mg/ Sodium (Chloride) 55 mls @ 210 mls/hr IV Q8H [facility] Stop: 11/22/23 20:39 Last Infusion: 10/23/23 23:20 Dose: Infused Documented By: Admin: 10/23/23 23:03 Dose: 210 mls/hr Documented By: DARIAN Discontinued Medications Thiamine HCl 100 mg/ Syringe 10 mls @ 2 mls/min IV QAM [facility] Stop: 11/22/23 16:29 Last Admin: 10/23/23 17:06 Dose: 2 mls/min Documented By: CAM Lorazepam 3 mg/ Syringe 3 mls @ 2 mls/min IV ONCE PRN; Protocol PRN Reason: EtOH Withdrawal AWSS Score 10+ Last Admin: 10/23/23 17:10 Dose: 2 mls/min Documented By: CAM Magnesium Sulfate/Dextrose (Magnesium Sulfate / D5w) 1 gm in 100 mls @ 100 mls/hr IV NOW STA Stop: 10/23/23 18:39 Last Infusion: 10/23/23 19:49 Dose: Infused Documented By: Admin: 10/23/23 18:13 Dose: 100 mls/hr Documented By: MATILDE Lorazepam 3 mg/ Syringe 3 mls @ 2 mls/min IV ONE ONE Stop: 10/23/23 20:16 Last Admin: 10/23/23 20:14 Dose: 2 mls/min Documented By: CAM Lorazepam 2 mg/ Syringe 2 mls @ 2 mls/min IV NOW STA Stop: 10/23/23 20:13 Last Admin: 10/23/23 20:14 Dose: 2 mls/min Documented By: CAM Lorazepam (Lorazepam 1 Mg/1 Ml Syr Ed Inj Use) Confirm Administered Dose 3 mg .ROUTE .STK-MED ONE Stop: 10/23/23 17:03 Last Admin: 10/23/23 17:10 Dose: Not Given Documented By: CAM Lorazepam (Lorazepam 1 Mg/1 Ml Syr Ed Inj Use) 2 mg IV ONE STA Stop: 10/23/23 18:21 Last Admin: 10/23/23 18:32 Dose: 2 mg Documented By: CAM Lorazepam (Lorazepam 1 Mg/1 Ml Syr Ed Inj Use) 3 mg IV ONE STA Stop: 10/23/23 19:00 Last Admin: 10/23/23 22:14 Dose: Not Given Documented By: CAM Lorazepam (Lorazepam 1 Mg/1 Ml Syr Ed Inj Use) 5 mg IV ONE STA Stop: 10/23/23 19:01 Last Admin: 10/23/23 19:29 Dose: 5 mg Documented By: CAM Phenobarbital Sodium (Phenobarbital Sodium 65 Mg/Ml Vial) 260 mg IV NOW STA Stop: 10/23/23 21:21 Last Admin: 10/23/23 21:39 Dose: 260 mg Documented By: CAM Coding Level of Care Code 03757 CRITICAL CARE 1ST 30-74M Diagnoses Alcohol addiction F10.20 Alcohol withdrawal F10.939 Hypomagnesemia E83.42 Rash and other nonspecific skin eruption R21 PTSD (post-traumatic stress disorder) F43.10
[2023-10-24] MEDS: LORazepam 1 MG in SYRINGE 0.5 ML IV PRN ×2 (01:33→23:20)
[2023-10-24 02:19] LABS: Amphetamines+Metham, Urine Neg (Neg); Barbiturates, Urine Pos (Neg); Benzodiazepine, Urine Pos (Neg); Cocaine, Urine Neg (Neg); MDMA (Ecstacy), Urine Neg (Neg); Marijuana, Urine Neg (Neg); Methadone, Urine Neg (Neg); Opiate, Urine Neg (Neg); Phencyclidine, Urine Neg (Neg)
[2023-10-24] MEDS ORDERED: Nursing to Pharmacy Communication SCH (02:45)
[2023-10-24] MEDS: MAGNESIUM SULFATE / D5W 1 GM/100 ML BAG IV SCH (04:15)
--- NOTE | 2023-10-24 07:49 | Critical Care Progress Note ---
Date of Service October 24, 2023 Assessment & Plan (1) Alcohol addiction: (2) Alcohol withdrawal: (3) Hypomagnesemia: (4) Rash and other nonspecific skin eruption: (5) PTSD (post-traumatic stress disorder): Plan Reason Critically Ill: 38 YOM with severe alcohol withdraw requiring Ativan, Precedex, phenobarbital for control of symptoms. Neuro - Delirium Tremens, Alcohol dependance, Anxiety/depression CAM ICU: [facility] --DVT 48 hours into his cessation of ETOH- ETOH level on arrival <10 - Urine tox positive for barbiturates and benzodiazepine- both which he received prior to urine screen Takes Valium 10 mg on an as-needed basis at home - Phenobarb loaded 260mg IV in the ER - Ativan IV for AWSS scoring - Precedex for stabilization- wean off as able -Continue with thiamine and folic acid Cardiac - No acute needs Respiratory - No acute needs - EtCo2 while receiving multiple sedating medications GI - --Transaminitis Discriminant factor less than 35, no indication for steroids for this Likely from alcohol use, continue to trend RENAL/LYTES - -- Monitor BUNs/creatinine - Urinary retention Continue with Schrader catheter ENDO - No acute needs HEME - Monitor H&H Skin: Skin rash eruption following drug administration - This reportedly started as small raised itchy bumps- initial pictures on phone is consistent with macular papular rash- now it is macular with well defined borders- salmon in color - ? early SJS vs Dress vs. other T cell mediated reaction based on timing and rash presentation - continue with prednisone ID - NO concern at this time for acute infectious process --Prophylaxis VTE: IPC GI: Pantoprazole Lines: Peripheral Diet: N.p.o. Plan: In/out: Positive 277, urine output 900 mL Change p.o. Ativan to IV Ativan as per CIWA protocol as needed DC Lovenox given the thrombocytopenia PT/INR is within normal limit. Try to go down on Precedex to keep the patient RASS -1 Potassium being replaced Continue with thiamine and folic acid I have personally spent 40 minutes of critical care time in the direct management of this patient. This is a life/limb threatening event. This includes time spent evaluating patient, direct bedside care, chart review, placing orders, interpretation of diagnostic studies, discussion with consultants, patient, and family members, as well as other required patient management activities. This time is exclusive of all separately billable procedures, and teaching time and separate from and in addition to any other critical care service time. Thank you for allowing us to participate in the care of this patient. Please refer to my attending physician's documentation for any further recommendations. Admission and Anticipated Discharge Date Admission Date: October 23, 2023 Subjective Patient seen and examined at bedside. No acute distress. Was on 0.7 of Precedex at the time of examination. I went down to 0.5 Was loaded with phenobarb in the ER. He is RASS -2 Review of Systems 2 Review of Systems: All systems reviewed & are unremarkable except as noted in Subjective Physical Exam 2 Physical Exam: Constitutional: No acute distress HEENT: PERRLA Respiratory system: Decreased air entry bilaterally, no wheeze, no rhonchi, mild crackles bilateral lower lobes CVS: S1-S2 positive, no murmurs or gallops Abdomen: Soft, nontender, nondistended, positive bowel sounds x4 Extremities: +2 pulses bilaterally radialis/ dorsalis pedis, no cyanosis, no edema Neuro: RASS -2, moving all extremities spontaneously Psych: Unable to assess G/U: Positive Schrader Skin: no rashes, warm and dry Lymphatic: no cervical or axillary lymphadenopathy Results & Data Results & Data Vital Signs (Past 12 Hours) Vital Signs Temp Pulse Pulse Resp BP BP Pulse Ox 10/24/23 06:00 37.1 C 72 18 135/84 95 10/24/23 05:00 37.2 C 71 21 143/91 H 93 10/24/23 04:00 37.3 C 71 21 145/83 H 95 10/24/23 03:00 37.3 C 72 22 143/94 H 94 10/24/23 02:00 37.2 C 76 20 152/84 H 94 10/24/23 01:30 77 10/24/23 01:16 37 C 75 22 150/96 H 94 10/24/23 00:00 36.8 C 78 20 150/96 H 95 10/23/23 23:28 36.6 C 80 21 142/82 H 95 10/23/23 22:40 36.5 C 80 21 130/75 96 10/23/23 22:40 86 10/23/23 22:00 85 24 93 10/23/23 22:00 131/86 02/16/24 21:39 132 H 18 124/88 10/23/23 21:30 124/88 10/23/23 21:23 125 H 18 10/23/23 21:00 104 H 16 95 10/23/23 20:51 108 H 28 H 90 10/23/23 20:51 142/81 H 10/23/23 20:00 103 H 18 O2 Del Method 10/24/23 06:00 Room Air 10/24/23 05:00 10/24/23 04:00 10/24/23 03:00 10/24/23 02:00 Room Air 10/24/23 01:30 10/24/23 01:16 Room Air 10/24/23 00:00 Room Air 10/23/23 23:28 Room Air 10/23/23 22:40 Room Air 10/23/23 22:40 10/23/23 22:00 10/23/23 22:00 10/23/23 21:39 10/23/23 21:30 10/23/23 21:23 10/23/23 21:00 10/23/23 20:51 10/23/23 20:51 10/23/23 20:00 Laboratory Results 10/23/23 16:04 10/23/23 16:04 Coding Level of Care Code 99136 CRITICAL CARE 1ST 30-74M Diagnoses Alcohol addiction F10.20 Alcohol withdrawal F10.939 Hypomagnesemia E83.42 Rash and other nonspecific skin eruption R21 PTSD (post-traumatic stress disorder) F43.10
--- NOTE | 2023-10-24 08:15 | XRay Report ---
XR chest 1V portable HISTORY: 38 years-old Male f/u acute shortness of breath COMPARISON: 09/24/2017 TECHNIQUE: AP view of the chest FINDINGS: Cardiomediastinal and hilar silhouettes are within normal limits. No pneumothorax, pleural effusion o r airspace consolidation. Lungs are hypoinflated. Bones of the chest appear grossly intact. IMPRESSION: No acute process. ACT 112: Negative or not required by law. The above report was generated using voice recognition software. It may contain grammatical, syntax o r spelling errors. Electronically signed by: Silas Grimes M.D. 10/24/2023 8:14 AM
[2023-10-24 08:42] LABS: Albumin Globulin Ratio 1.2 (0.9-2); Albumin Level 3.6 gm/dl (3.4-5.0); BUN Creatinine Ratio 20.3 (10-20); Bilirubin Direct 4.4 mg/dl (0-0.2); Bilirubin,Total 6.5 mg/dl (0.2-1.0); Calcium 8.3 mg/dl (8.6-10.3); Creatinine Clr Calc Pharmacy 154.3 ml/min; Est GFR (Non-African American) 124.2 ml/min; Globulin 2.9 gm/dl (2.5-4.0); Magnesium 2.4 mg/dl (1.7-2.4); Phosphorus 4.8 mg/dl (2.5-4.9); Potassium 2.8 mmol/L (3.5-5.1); Total Protein 6.5 gm/dl (6.0-8.3)
[2023-10-24 08:47] LABS: Basophils # (auto) 0.05 K/uL (0.00-0.20); Eosinophils # (auto) 0.22 K/uL (0.00-0.50); Eosinophils % (auto) 4.4 %; Hematocrit (blood only) 35.6 % (42.0-52.0); Hemoglobin 12.4 g/dl (14.0-18.0); Immature Granulocytes # (auto) 0.02 K/uL (0.01-0.20); Immature Granulocytes % (auto) 0.4 %; Lymphocytes # (auto) 0.62 K/uL (1.20-3.40); Lymphocytes % (auto) 12.4 %; Mean Corpuscular Hemoglobin 32.3 pg (25.0-34.0); Mean Corpuscular Hgb Conc 34.8 g/dL (32.0-36.0); Mean Corpuscular Volume 92.7 fL (80.0-100.0); Mean Platelet Volume 12.4 fL (9.4-12.4); Monocytes # (auto) 0.42 K/uL (0.11-0.59); Monocytes % (auto) 8.4 %; Neutrophils # (auto) 3.65 K/uL (1.40-6.50); Neutrophils % (auto) 73.4 %; Platelet Count 55 K/uL (130-400); RDW Coefficient of Variation 12.7 % (11.5-14.5); RDW Standard Deviation 43.2 fL (36.4-46.3); Red Blood Count 3.84 M/uL (4.70-6.10); White Blood Count 4.98 K/ul (4.8-10.8)
[2023-10-24 08:48] LABS: INR 1.1 (0.9-1.1); Prothrombin Time 11.6 Seconds (9.0-12.0)
[2023-10-24 08:50] LABS: INR 1.1 (0.9-1.1); Partial Thromboplastin Ratio 0.9; Partial Thromboplastin Time 26 Seconds (21-31); Prothrombin Time 11.5 Seconds (9.0-12.0)
[2023-10-24] MEDS ORDERED: PHENobarbital PO Alcohol Withdrawal PO ONE (09:00)
[2023-10-24] MEDS: ENOXAPARIN INJ 40 MG/0.4 ML SYR SQ SCH (10:16)
[2023-10-24] MEDS: POTASSIUM CHLORIDE / WTR 10 MEQ/100 ML PLCT IV SCH (10:16)
[2023-10-24] MEDS: predniSONE 20 MG TAB PO SCH (10:17)
[2023-10-24] MEDS: METOPROLOL SUCC 25MG EXT REL TAB PO SCH (10:17)
[2023-10-24] MEDS: PANTOprazole 40 MG in SYRINGE DAILY IV SCH (10:17)
[2023-10-24] MEDS: PANTOprazole 40 MG TAB PO SCH (10:22)
--- OUTSIDE RECORDS SUMMARY | 2023-10-24 10:38 | External Medical Summary | Summary of Care ---
Author Name Unknown Organization [facility] Address [address] [place] [address] Phone [phone] Care Team Providers Care Mixing Roll Operator Name Role Phone Conrad Vanegas MD Primary Care Provider [phone] Reason for Visit * Reason Onset Date Comments Referral 10/06/2023 Encounter Details Date Type Department Care Team (Late st Contact Info) Description 10/06/2023 Telephone [facility] [address] [place] [address] [facility] Referral Allergies Active Allergy Reactions Criticality Noted Date Comments Sulfa Antibiotics Rash Medium 10/06/2023 documented as of this encounter (statuses as of 10/06/2023) Medications Medication Sig Dispensed Refills Start Date End Date Status Irbesartan 75 MG Oral Tablet (Avapro)Indications: Primary hypertension One daily 90 Tablet 1 10/27/2022 Active Additional Information Patient not taking.Reported on 10/06/2023 Metoprolol Succinate ER 25 MG Oral Tablet Extended Release 24 Hour (toPROL XL)Indications:HTN, goal below 130/80 Take 1 Tablet by mouth in the morning. 90 Tablet 3 08/10/2023 Active Omeprazole 20 MG Oral Tablet Delayed Release Disintegrating Take 20 mg by mouth once. 0 Active EpiPen 2-Ricardo 0.3 MG/0.3ML Injection Solution Auto-injector Take 1 auto by injection route as needed. 0 01/31/2023 Active Bactrim DS 800-160 MG Oral Tablet Take 1 tablet every 12 hours by oral route for 10 days. 0 10/01/2023 Active Cephalexin 500 MG Oral CapsuleIndications:C ellulitis of other specified site Take 1 Capsule by mouth in the morning and 1 Capsule at noon and 1 Capsule before bedtime. Do all this for 10 days. 30 Capsule 0 10/06/2023 4 Active Doxycycline Hyclate 100 MG Oral CapsuleIndications:C ellulitis of other specified site Take 1 Capsule by mouth in the morning and 1 Capsule before bedtime. Do all this for 10 days. Take for 7 days. 20 Capsule 0 10/06/2023 4 Active Omeprazole 20 MG Oral Capsule Delayed Release (PriLOSEC)Indication s:Gastroesophageal reflux disease with esophagitis without hemorrhage Take 1 Capsule by mouth in the morning. 1 hour before the first meal of the day. 90 Capsule 1 10/06/2023 Active Triamcinolone Acetonide 0.1 % External Cream (Aristocort)Indicati ons:Allergy to antibiotic Apply topically to affected area 2 times a day. To affected area. 80 g 5 10/06/2023 Active Sildenafil Citrate 100 MG Oral TabletIndications:Ot her male erectile dysfunction Take 1 Tablet by mouth daily as needed for Erectile Dysfunction. 10 Tablet 0 10/06/2023 Active documented as of this encounter (statuses as of 10/06/2023) Active Problems Problem Noted Date Diagnosed Date Primary hypertension 10/21/2022 Alcohol ingestion, 1-4 drinks per day 08/26/2017 Tobacco use disorder 01/17/2016 Finger deformity, acquired 04/25/2014 Overview: LEFT 4TH Chews tobacco 04/25/2014 Dyslipidemia, goal LDL below 130 Hypertriglyceridemia documented as of this encounter (statuses as of 10/06/2023) Resolved Problems Problem Noted Date Diagnosed Date Resolved Date Adjustment disorder with depressed mood 08/26/2017 10/21/2022 Left groin pain 10/13/2016 08/26/2017 Acute costochondritis 02/22/20152016 Overactive bladder 08/13/2014 7 Nocturia 08/13/2014 08/26/2017 Migraine headache 06/06/2014 10/21/2022 Urinary frequency 06/06/2014 08/26/2017 Urgency of urination 06/06/2014 017 Kyphosis 05/09/2014 08/26/2017 Overweight (BMI 25.0-29.9) 04/25/2014 1 10/27/2016 Overview: BMI= 27.21 04/25/14 Exposure to hepatitis C 04/25/201408/08 Alcohol dependence in remission 04/25/2014 08/26/2017 Mixed dyslipidemia 05/09/2010 4 Elevated blood pressure, situational 05/09/2010 04/25/2014 Hemorrhage of rectum and anus 01/03/2010 08/26/2017 COLITIS, R/O INFLAMMATORY BOWEL DISEASE 01/03/2010 08/09/2010 Abdominal pain, generalized 01/03/2010 08/26/2017 PTSD 07/28/2009 10/21/2022 Closed fracture of thoracic vertebra 05/03/2009 08/26/2017 Major depressive disorder 12/07/2008 Overview: ICD-10 update of inactive term ALCOHOL ADDICTION 12/07/2008 08/26/2017 Panic disorder 01/06/2008 10/21/2022 Tobacco use disorder 10/14/2007 014 Abdominal pain, left upper quadrant 02/02/2007 01/17/2016 ADVANCE DIRECTIVE INFORMATION 04/08/2005 01/17/2016 Overview: No, Advance Directive brochure offered , patient declined. Unspecified viral infection, in conditions classified elsewhere and of unspecified site 04/25/2003 01/17/2016 ACUTE PHARYNGITIS 07/19/2001 10/26/2008 Overview: Resolved per Benign Acute Dxs Protocol #3 ACUTE URI NOS 07/19/2001 10/26/2008 Overview: Resolved per Benign Acute Dxs Protocol #3 OTHER ACNE 05/23/1999 01/17/2016 Chronic dermatitis 7 documented as of this encounter (statuses as of 10/06/2023) Immunizations Name Administration Dates Next Due COVID-19 mRNA, LNP-s, No Pre serve, 2-Dose Series ([employer]) 08/28/2021,11/26/2020,11/06/2020 H1N1 2009 Influenza, IM 09/11/2009 Pneumococcal Conjugate Vacci ne, 20-valent ([id number]) 10/21/2022 Seasonal Influenza, PF, 6 M & above, IM , (FluLaval or Fluzone) 05/29/2020,06/28/2018,08/26/2017 Seasonal Influenza, Quadriva lent, No Preserve, IM 06/09/2016,06/19/2015 Seasonal Influenza, Split, I IV3, With Preserve, Inj 06/06/2014,07/18/2010,05/18/2009,06/2306/06/2015 TD, Preservative Free 12/15/2018 TDAP (age 11 and older)(Adacel) 04/13/2009 documented as of this encounter Social History Tobacco Use Types Packs/Day Years Used Date Smoking Tobacco: Every Day Cigarettes 0.5 Passive Smoke Exposure: Past Smokeless Tobacco: Former Snuff, Chew Quit: 02/02/2015 Comments:began at age 15 5 c ans per month Alcohol Use Standard Drinks/Week Comments Yes 0 (1 standard drink = 0.6 oz pure alcohol) 1/2 pint to pint of vodka daily PHQ-2 Answer Date Recorded PHQ-2 Score -1 05/29/2020 Hunger Vital Sign Answer Date Recorded Worried About Running Out of Food in the Last Ye ar Never true 05/29/2020 Ran Out of Food in the Last Year Never true 05/29/2020 Sex and Gender Information Value Date Recorded Sex Assigned at Male 12/15/2018 3:15 PM EDT Gender Identity Male 12/15/2018 3:15 PM EDT Sexual Orientation Straight 12/15/2018 3: 15 PM EDT Job Start Date Occupation Industry Not on file Not on file Not on file documented as of this encounter Miscellaneous Notes * Telephone Encounter - Jadyn Blackmon BS - 10/06/2023 11:35 AM EST Epic 178 referral reason for the referral Uncomplicated alcohol dependence (HCC) [F10.20] Member is struggling with drinking he is drinking about a gal of vodka which is 5 5th a week. Has done counseling a couple times and thinks he needs detox but is not ready to commit to that. Did look into [facility] but they said he would need to do detox first Member would benefit from an AC referral if he agrees to it. Outcome: Was able to talk with the member in regards to the referral he is very interested in the AC referral to get some help starting the process of stopping the addiction he has to alcohol. documented in this encounter Plan of Treatment Upcoming Encounters Date Type Department Care Team (Late st Contact Info) Description 11/10/2023 1:40 PM EST Office Visit [facility] [address] [place] [facility] [address] Christopher Coats MD [address] [place] [address] Health Maintenance Due Date Last Done Comments HIV Screening 2000 Depression Screening 05/29/2021 05/29/2020, 08/26/20 17 GFR 12/17/2022 12/17/2021, 05/09, 11/09/2018, Additional history exists COVID-19 Vaccine ( season) 2023 08/28/2021, 11/26/2020, 11/06/2020 Influenza Vaccine (FLU shot) (#1) 2023 05/29/2020, 06/28/2018, 08/26/2017, Additional history exists Albumin/Creatinine Ratio 06/05/2023 06/05/2020 Diabetes Screening 12/17/2024 12/17/2021, 0 06/05/2020, 11/09/2018, Additional history exists DTaP,Tdap,and Td Vaccines (8 - Td or Tdap) 12/15/2028 12/15/2018, 04/13/2009, 11/25/1999, Additional history exists Hepatitis B Completed 12/11/1998, 03/1999, 07/10/1998 Pneumococcal Vaccine: Pediatrics (0 to 5 Years) and At-Risk Patients (6 to 64 Years) Completed 10/21/2022 GARDASIL-HPV IMMUNIZATION SERIES Aged Out No longer eligible based on patient's age to complete this topic MENINGOCOCCAL (MENACTRA/MENVEO) Aged Out No longer eligible based on patient's age to complete this topic documented as of this encounter Medical Devices Not on filedocumented as of this encounter Care Teams Mixing Roll Operator Relationship Specialty Start Date End Date Conrad Vanegas MD [address] [place] [address] [place] [address] PCP - General Family Medicine 10/21/22 documented as of this encounter
--- OUTSIDE RECORDS SUMMARY | 2023-10-24 10:38 | External Medical Summary | Summary of Care ---
Author Name Unknown Organization [facility] Address [address] [place] [address] Phone [phone] Care Team Providers Care All Source Collection Manager Name Role Phone Conrad Vanegas MD Primary Care Provider Encounter Details Date Type Department Care Team (Late st Contact Info) Description 10/13/2023 Telephone [facility] [address] [place] [address] Christopher Coats MD [address] [place] [address] Allergies Active Allergy Reactions Criticality Noted Date Comments Sulfa Antibiotics Rash Medium 10/06/2023 documented as of this encounter (statuses as of 10/13/2023) Medications Medication Sig Dispensed Refills Start Date End Date Status Irbesartan 75 MG Oral Tablet (Avapro)Indications :Primary hypertension One daily 90 Tablet 1 10/27/2022 [...] route for 10 days. 0 10/01/2023 Active Doxycycline Hyclate 100 MG Oral CapsuleIndications: Cellulitis of other specified site Take 1 Capsule by mouth in the morning and 1 Capsule before bedtime. Do all this for 10 days. Take for 7 days. 20 Capsule 0 10/06/2023 4 Active Omeprazole 20 MG Oral Capsule Delayed Release (PriLOSEC)Indicatio ns:Gastroesophageal reflux disease with esophagitis without hemorrhage Take 1 Capsule by mouth in the morning. 1 hour before the first meal of the day. 90 Capsule 1 10/06/2023 Active Triamcinolone Acetonide 0.1 % External Cream (Aristocort)Indicat ions:Allergy to antibiotic Apply topically to affected area 2 times a day. To affected area. 80 g 5 10/06/2023 Active Sildenafil Citrate 100 MG Oral TabletIndications:O ther male erectile dysfunction Take 1 Tablet by mouth daily as needed for Erectile Dysfunction. 10 Tablet 0 10/06/2023 Active Cephalexin 500 MG Oral CapsuleIndications: Cellulitis of other specified site Take 1 Capsule by mouth in the morning and 1 Capsule at noon and 1 Capsule before bedtime. Do all this for 10 days. 30 Capsule 0 10/06/2023 4 Discontinu ed(Medicat ion List Clean Up) documented as of this encounter (statuses as of 10/13/2023) Active Problems Problem Noted Date Diagnosed Date Primary hypertension 10/21/2022 Alcohol ingestion, 1-4 drinks per day 08/26/2017 Tobacco use disorder 01/17/2016 Finger deformity, acquired 04/25/2014 Overview: LEFT 4TH Chews tobacco 04/25/2014 Dyslipidemia, goal LDL below 130 Hypertriglyceridemia documented as of this encounter (statuses as of 10/13/2023) Resolved Problems Problem Noted Date Diagnosed Date [...] as of this encounter (statuses as of 10/13/2023) Immunizations Name Administration Dates Next Due COVID-19 mRNA, LNP-s, No Pre serve, 2-Dose Series (Pfizer) 08/28/2021,11/26/2020,11/06/2020 H1N1 2009 Influenza, IM 09/11/2009 Pneumococcal Conjugate Vacci ne, 20-valent ([id number]) 10/21/2022 Seasonal Influenza, PF, 6 M & [...] of vodka daily PHQ-2 Answer Date Recorded PHQ Adult Total Score 18 10/06/2023 Hunger Vital Sign Answer Date Recorded Within the past 12 months, y ou worried that your food would run out before you got the money to buy more. Never true 10/06/19 24 Within the past 12 months, t he food you bought just didn't last and you didn't have money to get more. Never true 10/06/2023 Sex and Gender Information Value Date Recorded Sex Assigned at Male 12/15/2018 3:15 PM EDT Gender Identity Male 12/15/2018 3:15 PM EDT Sexual Orientation Straight 12/15/2018 3: 15 PM EDT Job Start Date Occupation Industry Not on file Not on file Not on file documented as of this encounter Miscellaneous Notes * Telephone Encounter - Jeanie Doherty LPN - 10/13/2023 4:20 PM EST Patient aware and verbalized understanding * Telephone Encounter - Christopher Coats MD - 10/13/2023 1:04 PM EST Advise Pt: Given continued issues with "rash", I suggest he take Claritin 10mg daily to help with itch. May stop when no more rash/ itching. He can use the Triamcinalone Cream twice daily to affectedareas of skin as needed(as was prescribed 10/06/23). He also does not need to take the Keflex anymore. He should finish the doxycycline (10 day course) * Telephone Encounter - Christopher Coats MD - 10/13/2023 1:04 PM EST ----- Message from Kiara Anton LPC sent at 10/13/2023 10:40 AM EST ----- Has a date to go to detox on the but is worried about this rash that he has and said it is really itchy and bad. His foot is the worst. Wants to know what he can do to get it cleared up. I think he is using the rash as an excuse not to go so if we can get this straightened out I think he will go. Gretel Calle documented in this encounter Plan of Treatment Upcoming Encounters Date Type Department Care Team (Late st Contact Info) Description 11/10/2023 1:40 PM EST Office Visit [facility] [address] [place] [phone] Christopher Coats MD [address] [place] [facility] [place] [address] Health Maintenance Due Date Last Done Comments HIV Screening 2000 GFR 12/17/2022 12/17/2021, 05/09, 11/09/2018, Additional history exists COVID-19 Vaccine ( season) 2023 08/28/2021, 11/26/2020, 11/06/2020 Influenza Vaccine (FLU shot) (#1) 2023 05/29/2020, 06/28/2018, 08/26/2017, Additional history exists Albumin/Creatinine Ratio 06/05/2023 06/05/2020 Depression, Most Recent Score >= 10 (will fire each visit until score < 10) 10/07/2023 10/06/2023 Diabetes Screening 12/17/2024 12/17/2021, 0 06/05/2020, 11/09/2018, [...] filedocumented as of this encounter Care Teams All Source Collection Manager Relationship Specialty Start Date End Date Conrad Vanegas MD [address] [place] [address] [place] [address] PCP - General Family Medicine 10/21/22 documented as of this encounter
--- OUTSIDE RECORDS SUMMARY | 2023-10-24 10:38 | External Medical Summary | Summary of Care ---
Author Name Unknown Organization [facility] Address [address] [place] [address] Phone [phone] Care Team Providers Care Hotel Engineer Name Role Phone Conrad Vanegas MD Primary Care Provider [phone] Encounter Details Date Type Department Care Team (Late st Contact Info) Description 10/14/2023 Population Health External Data Unspecified Department Allergies Active Allergy Reactions Criticality Noted Date Comments Sulfa Antibiotics Rash Medium 10/06/2023 documented as of this encounter (statuses as of 10/14/2023) Medications Medication Sig Dispensed Refills Start Date [...] 10/01/2023 Active Doxycycline Hyclate 100 MG Oral CapsuleIndications:C [...] as of this encounter (statuses as of 10/14/2023) Active Problems Problem Noted Date Diagnosed Date Primary hypertension 10/21/2022 Alcohol ingestion, 1-4 drinks per day 08/26/2017 Tobacco use disorder 01/17/2016 Finger deformity, acquired 04/25/2014 Overview: LEFT 4TH Chews tobacco 04/25/2014 Dyslipidemia, goal LDL below 130 Hypertriglyceridemia documented as of this encounter (statuses as of 10/14/2023) Resolved Problems Problem Noted Date Diagnosed Date [...] as of this encounter (statuses as of 10/14/2023) Immunizations Name Administration Dates Next Due COVID-19 mRNA, LNP-s, No Pre serve, 2-Dose Series ([employer]) 08/28/2021,11/26/2020,11/06/2020 H1N1 2009 Influenza, IM 09/11/2009 Pneumococcal Conjugate Vacci ne, 20-valent ([id number]) 10/21/2022 Seasonal Influenza, PF, 6 M & [...] on file documented as of this encounter Plan of Treatment Upcoming Encounters Date Type Department Care Team (Late st Contact Info) Description 11/10/2023 1:40 PM EST Office Visit [facility] [address] [place] [phone] Christopher Coats MD [address] [place] [address] Health Maintenance Due Date Last Done Comments [...] filedocumented as of this encounter Care Teams Hotel Engineer Relationship Specialty Start Date End Date Conrad Vanegas MD [address] [place] [address] [place] [phone] PCP - General Family Medicine 10/21/22 documented as of this encounter
--- OUTSIDE RECORDS SUMMARY | 2023-10-24 10:38 | External Medical Summary | Summary of Care ---
Author Name Unknown Organization [facility] Address [address] [place] [address] Phone [phone] Care Team Providers Care Hypo Splasher Name Role Phone Conrad Vanegas MD Primary Care Provider [phone] Encounter Details Date Type Department Care Team ([facility] st Contact Info) Description 10/07/2023 Orders Only PATIENT PORTAL DO NOT DELETE THIS DEPT USED BY [place] [id number] Allergies Active Allergy Reactions Criticality Noted Date Comments Sulfa Antibiotics Rash Medium 10/06/2023 documented as of this encounter (statuses as of 10/07/2023) Medications Medication Sig Dispensed Refills Start Date [...] for 10 days. 30 Capsule 0 10/06/2023 Active Doxycycline Hyclate 100 MG Oral CapsuleIndications:C ellulitis of other specified site Take 1 Capsule by mouth in the morning and 1 Capsule before bedtime. Do all this for 10 days. Take for 7 days. 20 Capsule 0 10/06/2023 Active Omeprazole 20 MG Oral Capsule Delayed [...] as of this encounter (statuses as of 10/07/2023) Active Problems Problem Noted Date Diagnosed Date Primary hypertension 10/21/2022 Alcohol ingestion, 1-4 drinks per day 08/26/2017 Tobacco use disorder 01/17/2016 Finger deformity, acquired 04/25/2014 Overview: LEFT 4TH Chews tobacco 04/25/2014 Dyslipidemia, goal LDL below 130 Hypertriglyceridemia documented as of this encounter (statuses as of 10/07/2023) Resolved Problems Problem Noted Date Diagnosed Date [...] as of this encounter (statuses as of 10/07/2023) Immunizations Name Administration Dates Next Due COVID-19 mRNA, LNP-s, No Pre serve, 2-Dose Series (AG&P) 08/28/2021,11/26/2020,11/06/2020 H1N1 2009 Influenza, IM 09/11/2009 Pneumococcal Conjugate Vacci ne, 20-valent ([id number]) 10/21/2022 Seasonal Influenza, PF, 6 M & [...] standard drink = 0.6 oz pure alcohol) / pint to pint of vodka daily PHQ-2 [...] Description 11/10/2023 1:40 PM EST Office Visit [facility] [address] [place] [facility] [place] [phone] Christopher Coats [facility] [address] [facility] [place] [address] Health Maintenance Due Date Last Done [...] filedocumented as of this encounter Care Teams Hypo Splasher Relationship Specialty Start Date End Date Conrad Vanegas MD [address] [place] [address] N[place] Ac[place] [phone] PCP - General Family Medicine 10/21/22 documented as of this encounter
--- OUTSIDE RECORDS SUMMARY | 2023-10-24 10:39 | External Medical Summary | Summary of Care ---
Author Name Unknown Organization [facility] Address [address] [place] [address] Phone [phone] Care Team Providers Care Estimator Jewelry Name Role Phone Conrad Vanegas MD Primary Care Provider [phone] Reason for Referral * Social Care (Within 10 days (routine)) - Authorized Specialty Diagnoses / Procedures Referred By Kristen onofre Referred To Contact Die Hardener Diagnoses Uncomplicated alcohol dependence (HCC) Christopher Coats MD [address] [place] [address] Referral ID Status Reason Start Date Expiration Date Visits Requested Visits Authorized [id number] Authorized Specialty Services Required 10/06/[phone] Question Answer Referral Priority Within 10 days (routine) Where should this appointment be scheduled? [facility] Die HardenerSenior Web Analyst Health Die Hardener Referral Reason Active Substance Abuse Comments Is patient being transitioned from [facility] to Complex Case Management? No Reason for Visit * Reason Comments Acute Futility issues Urge nt care this right foot big toe infection maybe having adverse effects (rash) from antibioticsRX for Omeprazole Encounter Details Date Type Department Care Team (Late st Contact Info) Description 10/06/2023 9:00 AM EST Office Visit [facility] [address] [place] [address] Christopher Coats MD [address] [place] [address] Cellulitis of other specified site*; Uncomplicated alcohol dependence (HCC); Dyslipidemia, goal LDL below 130; Hypertriglyceridemia; Primary hypertension; Decreased libido; Other male erectile dysfunction; Gastroesophageal reflux disease with esophagitis without hemorrhage; Allergy to antibiotic Allergies Active Allergy Reactions Criticality Noted Date [...] 0 10/01/2023 Active Cephalexin 500 MG Oral CapsuleIndications: Cellulitis of other specified site Take 1 Capsule by mouth in the morning and 1 Capsule at noon and 1 Capsule before bedtime. Do all this for 10 days. 30 Capsule 0 10/06/2023 4 Active Doxycycline Hyclate 100 MG Oral CapsuleIndications: [...] Erectile Dysfunction. 10 Tablet 0 10/06/2023 Active Triamcinolone Acetonide 0.1 % External Cream (Aristocort)Indicat ions:Eczema, unspecified type Apply topically to affected area 2 times a day . To affected area. 80 g 5 12/17/2021 Discontinu ed(Patient preference /discontin uation) documented as of this encounter (statuses as [...] mRNA, LNP-s, No Pre serve, 2-Dose Series (Aquiris) 08/28/2021,11/26/2020,11/06/2020 H1N1 2009 Influenza, IM 09/11/2009 Pneumococcal Conjugate Vacci ne, 20-valent ([id number]) 10/21/2022 Seasonal Influenza, PF, 6 M & [...] Smokeless Tobacco: Former Snuff, Chew Quit: 02/02/2015 Tobacco Cessation:Ready to Q uit: Not Asked; Counseling Given: Not Answered Comments:began at age 15 5 cans per month Alcohol Use Standard Drinks/Week Comments [...] on file documented as of this encounter Last Filed Vital Signs Vital Sign Reading Time Taken Comments Blood Pressure 138/72 10/06/2023 9:20 AM EST Pulse 84 10/06/2023 9:20 AM EST Temperature 36.2 C (97.1 F) 10/06/2023 9:20 AM ES T Respiratory Rate 16 10/06/2023 9:20 AM EST Oxygen Saturation 97% 10/06/2023 9:20 AM EST Inhaled Oxygen Concentration - - Weight 78.3 kg (172 lb 9.6 oz) 10/06/2023 9:20 A M EST Height 165.1 cm (5' 5") 10/06/2023 9:20 AM EST Body Mass Index 28.72 10/06/2023 9:20 AM EST documented in this encounter Progress Notes * Christopher Coats MD - 10/06/2023 9:43 AM EST Subjective: Db Mcdowell is a 38 year old male. Chief Complaint Patient presents with Acute Futility issues Urgent care this right foot big toe infection maybe having adverse effects (rash) from antibiotics RX for Omeprazole HPI: 38-year-old Um seeing for the 1st time in about 2 years. He has a known history of hypertension but also alcohol dependence. He had seen Dr. Shaffer on occasion and was switch from metoprolol tovalsartan for blood pressure control. He did not like the Avapro as he felt as if his legs were rubbery so he stopped it went back on metoprolol which he remains on. He was recently seen in [facility] care because of a red sore right great toe that dates back to middle summer 2022. He was started on Bactrim for I believe cellulitis. He is taken about 5 days of the Bactrim. Now has a diffuse rash. Having issues with erectile function. He said this started all of a sudden. Has interest in sex. Heis Um and has not monogamous relationship and is sexually attracted to his . But he hasnot been able to get an erection. No sex in 2 months. Unfortunately he continues drinking. Is drinking about a gal of vodka which is 5 5th a week. Notes that his does not like his drinking. Has not run into any trouble that he is aware of at work. Has a history of a DUI although that dates back to 2008. Has done counseling a couple times. Feels he probably needs to do detox but isn't at the point where he is willing at this moment. Recently talked to [facility] and they told him that they did not want to schedule him for outpatient counselinguntil he did detox. He did quit smoking about 16 months ago Recently started on omeprazole because of heartburn. Um heartburn totally resolved taking omeprazole 20 mg daily. He is asking for a prescription. Patient Active Problem List Diagnosis Code Dyslipidemia, goal LDL below 130 E78.5 Hypertriglyceridemia E78.1 Finger deformity, acquired M20.009 Chews tobacco Z72.0 Tobacco use disorder F17.200 Alcohol ingestion, 1-4 drinks per day Z78.9 Primary hypertension I10 Current Outpatient Medications Medication Sig Dispense Refill Metoprolol Succinate ER 25 MG Oral Tablet Extended Release 24 Hour (toPROL XL) Take 1 Tablet by mouth in the morning. 90 Tablet 3 Omeprazole 20 MG Oral Tablet Delayed Release Disintegrating Take 20 mg by mouth once. EpiPen 2-Ricardo 0.3 MG/0.3ML Injection Solution Auto-injector Take 1 auto by injection route as needed. Bactrim DS 800-160 MG Oral Tablet Take 1 tablet every 12 hours by oral route for 10 days. Irbesartan 75 MG Oral Tablet (Avapro) One daily (Patient not taking: Reported on 10/06/2023) 90 Tablet 1 No current facility-administered medications for this visit. Review of patient's allergies indicates: Allergen Reactions Sulfa Antibiotics Rash Objective: BP 138/72 | Pulse 84 | Temp 36.2 C (97.1 F) (Infrared ) | Resp 16 | Ht 1.651 m (5' 5") | Wt 78.3 kg (172 lb 9.6 oz) | SpO2 97% | BMI 28.72 kg/m | BSA 1.89 m Physical Exam: CONST: alert, pleasant, no acute distress HEAD: normocephalic, atraumatic CV: regular rate and rhythm, no murmur CHEST: clear to auscultation bilaterally, no rales or wheezing MENTAL STATUS: no evidence of thought disorder, no delusional thought, no evidence of paranoia, thought is non-tangential. SKIN: Right foot-he has what appears to be thickening of the skin over the dorsal aspect especiallyof the great toe with some fissuring. There is some diffuse erythema of the extends back over Um the dorsal aspect of the mid foot. He has diffuse papular rash especially in his upper extremities and some areas a diffuse erythema-all felt likely to be due to sulfa allergy ASSESSMENT/PLAN: Cellulitis of other specified site (Primary)-he is going to stop the Bactrim because of suspected allergy. Instead will use doxycycline 100 mg twice a day and Keflex 500 mg 3 times a day Uncomplicated alcohol dependence (HCC)-consult population Health a behavioral health caseworker protective services. I highly encouraged him to do detox. He is worried about work and securing his job. I suggested he get an FMLA form for me to complete Dyslipidemia, goal LDL below 130-will check lipid profile but no medication at this time Hypertriglyceridemia-check lipid profile Primary hypertension-blood pressure is reasonable continue the metoprolol 25 mg daily. It may be worthwhile trying a different MITUL inhibitor or Arb in the future instead of metoprolol. Not going to make that move now Decreased libido-I think this is secondary to his erectile dysfunction Other male erectile dysfunction-check testosterone profile morning specimen. Start sildenafil 100 mg-half a tablet Um as needed Um for erectile dysfunction. He knows never to use more than 100 mg in 24 hours Gastroesophageal reflux disease with esophagitis without hemorrhage-omeprazole 20 mg daily Allergy to antibiotic-stop Bactrim. Follow Up: Return in about 1 month (around 11/05/2023) for Return with Physician. | For: Return withPhysician 45 minutes needed to review history and to recommend plan and complete orders. Christopher Coats MD documented in this encounter Nursing Notes * Alcira Verdugo LPN - 10/06/2023 9:16 AM EST Chief Complaint Patient presents with Acute Futility issues Urgent care this right foot big toe infection maybe having adverse effects (rash) from antibiotics RX for Omeprazole documented in this encounter Plan of Treatment Upcoming Encounters Date Type Department Care Team (Late st Contact Info) Description 11/10/2023 1:40 PM EST Office Visit [facility] [address] [place] [address] Christopher Coats MD [address] [place] [address] Scheduled Orders Name Type Priority Associated Diagnoses Orde r Schedule TSH WITH FREE T4 IF INDICATED Lab Routine Decreased libido Expected: 10/06/2023 (Approximate), Expires: 10/05/2024 COMPREHENSIVE METABOLIC PANEL Lab Routine Primary hypertension Expected: 10/06/2023 (Approximate), Expires: 10/05/2024 LIPID PANEL WITH DIRECT LDL IF TG IS HIGH Lab Routine Dyslipidemia, goal LDL below 130 Hypertriglyceridemia Expected: 10/06/2023, Expires: 10/06/2024 ALBUMIN / CREATININE RATIO, URINE Lab Routine Primary hypertension Expected: 10/06/2023 (Approximate), Expires: 10/05/2024 TESTOSTERONE: TOTAL, FREE AND BIOAVAILABLE Lab Routine Decreased libido Expected: 10/06/2023 (Approximate), Expires: 10/05/2024 Scheduled Referrals Name Type Priority Associated Diagnoses Orde r Schedule POPULATION HEALTH REFERRAL OP Referral Within 10 days (routine) Uncomplicated alcohol dependence (HCC) Ordered: 10/06/2023 Health Maintenance Due Date Last Done Comments [...] Not on filedocumented as of this encounter Visit Diagnoses Diagnosis Cellulitis of other specified site- Primary Uncomplicated alcohol dependence (HCC) Other and unspecified alcohol dependence, unspecified drinking behavior Dyslipidemia, goal LDL below 130 Other and unspecified hyperlipidemia Hypertriglyceridemia Pure hyperglyceridemia Primary hypertension Unspecified essential hypertension Decreased libido Other male erectile dysfunction Gastroesophageal reflux disease with esophagitis without hemorrhage Allergy to antibiotic Other drug allergy documented in this encounter Care Teams Estimator Jewelry Relationship Specialty Start Date End Date Conrad Vanegas MD [address] [place] [address] NABIL Acosta [id number] PCP - General Family Medicine 10/21/22 documented as of this encounter
[2023-10-24] MEDS: LACTATED RINGER'S 1,000 ML IV SCH (14:14)
--- NOTE | 2023-10-24 14:37 | Hospitalist Progress Note ---
Date of Service October 24, 2023 Assessment & Plan (1) Alcohol withdrawal: (2) Delirium tremens: Plan: Heavy h/o alcohol use with last drink approximately 48 hours ago prior to presentation He was in rehab when he started to withdraw and was sent in. Required multiple doses of Ativan in the ED. Admitted to ICU for Precedex On phenobarbital and Ativan for withdrawal; Wean Precedex as tolerated Will need to follow-up with addiction medicine for alcohol use disorder treatment for resolution of medical issue Continue thiamine/folic acid Rest per ICU (3) Alcoholic hepatitis: Plan: Bilirubin elevated Liver enzymes with AST/RFS071/102 PT/INR within normal limits Maddrey score not elevated Continue IV fluids; provide nutritional support after patient is able to take p.o. (4) Rash and other nonspecific skin eruption: Plan: He was recently seen in urgent care because of a dermatitis on his feet and was started on Bactrim, which appeared to cause this diffuse rash after 5 days of use. He was switched to Keflex and doxycycline by Dr. Coats on 10/06. When he went to [facility] he was started on prednisone per his . Currently on prednisone 20 mg once daily; will wean off. (5) Tobacco use disorder: (6) Primary hypertension: Plan: Currently on metoprolol Continue for now (7) PTSD (post-traumatic stress disorder): Plan: history of this (8) Depression: Plan: history of this with need for hospitalization in the distant past. DVT proph: SCDs, Lovenox GI proph: per ICU team Full Code Dispo- to ICU. Patient continues to be hospitalized for severe multiple withdrawal requiring Precedex and close monitoring in the ICU. Time spent evaluating patient, direct bedside care, chart review, placing orders, interpretation of diagnostic studies, discussion with consultants, patient, and family members, as well as other required patient management activities is 50-minutes Please note the above document was generated using voice recognition software. It may contain grammatical, syntax or spelling errors. Any formal questions or concerns about the content, text or information contained within the body of this dictation should be directly addressed to the provider for clarification Admission and Anticipated Discharge Date Admission Date: October 23, 2023 Subjective Patient seen and examined at bedside. He is lying on the bed; was sedated with Precedex. No signs or symptoms of agitation. Vitals remained stable. Review of Systems Review of Systems: Unobtainable due to reduced consciousness Physical Exam Physical Exam: Constitutional: Sedated with Precedex; not agitated Respiratory: Bilateral vesicular breath Cardiovascular: RRR, no murmur, no edema Vessels: no JVD or carotid bruit Chest: normal inspection of chest Abdomen: Soft, nontender Musculoskeletal: no cyanosis or clubbing, extremities motor strength 5/5 Skin: no rashes, warm and dry normal turgor Neurologic: PERRL, sedated with precedex Results & Data Results & Data Vital Signs (Past 12 Hours) Vital Signs Temp Pulse Resp BP Pulse Ox O2 Del Method 10/24/23 12:00 36.6 C 66 16 95 10/24/23 12:00 120/83 10/24/23 11:30 36.6 C 65 15 96 10/24/23 11:00 36.6 C 65 16 94 10/24/23 11:00 134/85 10/24/23 10:30 36.6 C 65 17 94 10/24/23 10:00 36.7 C 67 17 95 10/24/23 10:00 104/71 10/24/23 09:30 36.8 C 66 18 95 10/24/23 09:00 136/74 10/24/23 09:00 36.8 C 67 20 94 10/24/23 08:30 36.9 C 67 16 94 10/24/23 08:00 36.9 C 68 19 96 10/24/23 08:00 130/77 10/24/23 07:30 36.9 C 70 19 94 10/24/23 07:00 137/80 10/24/23 07:00 37.0 C 67 12 96 10/24/23 06:30 37.1 C 69 18 95 10/24/23 06:00 37.1 C 72 18 135/84 95 Room Air 10/24/23 05:00 37.2 C 71 21 143/91 H 93 10/24/23 04:00 37.3 C 71 21 145/83 H 95 10/24/23 03:00 37.3 C 72 22 143/94 H 94 (1) Alcohol withdrawal Complication of substance-induced condition: with delirium Qualified Code(s): F10.931 - Alcohol use, unspecified with withdrawal delirium
--- NOTE | 2023-10-24 16:01 | Electrocardiogram Report ---
Test Reason : Blood Pressure : / mmHG Vent. Rate : 092 BPM Atrial Rate : 092 BPM P-R Int : 146 ms QRS Dur : 084 ms QT Int : 368 ms P-R-T Axes : 035 011 -18 degrees QTc Int : 455 ms Normal sinus rhythm Minimal voltage criteria for LVH, may be normal variant ( R in aVL ) Cannot rule out Anterior infarct , age undetermined T wave abnormality, consider inferior ischemia Abnormal ECG No previous ECGs available Confirmed by Mayo Elena ([id number]) on 10/24/2023 4:01:06 PM Referred By: REFERRED SELF Confirmed By:Mayo Elena
[2023-10-24] MEDS: PHENobarbitaL 30 MG TAB PO SCH (17:17)
[2023-10-24] MEDS: LORazepam 2 MG in SYRINGE 1 ML IV PRN (17:22)
[2023-10-25 05:28] LABS: Basophils # (auto) 0.07 K/uL (0.00-0.20); Basophils % (auto) 1.2 %; Eosinophils # (auto) 0.26 K/uL (0.00-0.50); Eosinophils % (auto) 4.4 %; Hematocrit (blood only) 40.4 % (42.0-52.0); Hemoglobin 13.9 g/dl (14.0-18.0); Immature Granulocytes # (auto) 0.02 K/uL (0.01-0.20); Immature Granulocytes % (auto) 0.3 %; Lymphocytes # (auto) 0.53 K/uL (1.20-3.40); Lymphocytes % (auto) 9.1 %; Mean Corpuscular Hemoglobin 32.7 pg (25.0-34.0); Mean Corpuscular Hgb Conc 34.4 g/dL (32.0-36.0); Mean Corpuscular Volume 95.1 fL (80.0-100.0); Mean Platelet Volume 12.1 fL (9.4-12.4); Monocytes # (auto) 0.68 K/uL (0.11-0.59); Monocytes % (auto) 11.6 %; Neutrophils # (auto) 4.29 K/uL (1.40-6.50); Neutrophils % (auto) 73.4 %; Platelet Count 66 K/uL (130-400); RDW Standard Deviation 45.5 fL (36.4-46.3); Red Blood Count 4.25 M/uL (4.70-6.10); White Blood Count 5.85 K/ul (4.8-10.8)
[2023-10-25] MEDS: POTASSIUM CHLORIDE CRTAB 20 MEQ TABCR PO STA (06:44)
--- NOTE | 2023-10-25 07:59 | Critical Care Progress Note ---
Date of Service October 25, 2023 Assessment & Plan (1) Alcohol addiction: (2) Alcohol withdrawal: (3) Hypomagnesemia: (4) Rash and other nonspecific skin eruption: (5) PTSD (post-traumatic stress disorder): Plan Reason Critically Ill: 38 YOM with severe alcohol withdraw requiring Ativan, Precedex, phenobarbital for control of symptoms. Neuro - Delirium Tremens, Alcohol dependance, Anxiety/depression CAM ICU: [facility] --DVT 48 hours into his cessation of ETOH- ETOH level on arrival <10 - Urine tox positive for barbiturates and benzodiazepine- both which he received prior to urine screen Takes Valium 10 mg on an as-needed basis at home - Phenobarb loaded 260mg IV in the ER, complete the titration off of phenobarb p.o. - Ativan IV for AWSS scoring -Continue with thiamine and folic acid Cardiac - No acute needs Respiratory - No acute needs - EtCo2 while receiving multiple sedating medications GI - --Transaminitis Discriminant factor less than 35, no indication for steroids for this Likely from alcohol use, continue to trend RENAL/LYTES - -- Monitor BUNs/creatinine - Urinary retention Continue with Schrader catheter ENDO - No acute needs HEME - Monitor H&H Skin: Skin rash eruption following drug administration - This reportedly started as small raised itchy bumps- initial pictures on phone is consistent with macular papular rash- now it is macular with well defined borders- salmon in color - ? early SJS vs Dress vs. other T cell mediated reaction based on timing and rash presentation - continue with prednisone ID - NO concern at this time for acute infectious process --Prophylaxis VTE: IPC GI: Pantoprazole Lines: Peripheral Diet: Regular diet Plan: In/out: +794, urine output 3375 Continue with tapering off of phenobarbital p.o. Ativan as needed Has been off Precedex for almost 12 hours. Potassium being replaced Change thiamine and folic acid to p.o. Patient hemodynamically stable to be downgrade to medical floor Case was discussed with primary team Please note the above document was generated using voice recognition software. It may contain grammatical, syntax or spelling errors.Any formal questions or concerns about the content, text or information contained within the body of this dictation should be directly addressed to the provider for clarification. Admission and Anticipated Discharge Date Admission Date: October 23, 2023 Subjective Patient seen and examined at bedside. No acute distress, notable since overnight Precedex has been off since 11 PM last night. He was awake alert answering all the questions appropriately. He was a little bit restless with heart rate in the high 110s Denied any visual, auditory or tactile hallucination. No abdominal pain No nausea or vomiting Denied any headache or blurry vision Review of Systems 2 Review of Systems: All systems reviewed & are unremarkable except as noted in Subjective Physical Exam 2 Physical Exam: Constitutional: No acute distress HEENT: PERRLA Respiratory system: Decreased air entry bilaterally, no wheeze, no rhonchi, mild crackles bilateral lower lobes CVS: S1-S2 positive, no murmurs or gallops Abdomen: Soft, nontender, nondistended, positive bowel sounds x4 Extremities: +2 pulses bilaterally radialis/ dorsalis pedis, no cyanosis, no edema Neuro: Awake alert oriented to self and place Psych: Normal mood and affect G/U: Positive Schrader Skin: no rashes, warm and dry Lymphatic: no cervical or axillary lymphadenopathy Results & Data Results & Data Vital Signs (Past 12 Hours) Vital Signs Temp Pulse Resp BP Pulse Ox 10/25/23 06:30 90 17 95 10/25/23 06:30 149/99 H 10/25/23 06:00 37.8 C H 98 H 19 97 10/25/23 06:00 132/99 10/25/23 05:30 37.7 C H 81 16 97 10/25/23 05:30 133/94 10/25/23 05:01 37.6 C H 82 24 97 10/25/23 05:01 127/94 10/25/23 05:00 37.7 C H 80 17 96 10/25/23 04:30 155/101 H 10/25/23 04:30 37.7 C H 81 18 96 10/25/23 04:01 143/100 H 10/25/23 04:01 37.6 C H 122 H 15 96 10/25/23 04:00 37.6 C H 88 21 98 10/25/23 03:30 37.5 C 79 16 97 10/25/23 03:30 127/86 10/25/23 03:00 37.4 C 65 14 96 10/25/23 03:00 147/100 H 10/25/23 02:30 37.2 C 63 13 97 10/25/23 02:30 147/96 H 10/25/23 02:00 37.3 C 73 17 96 10/25/23 02:00 142/97 H 10/25/23 01:30 37.4 C 83 17 96 10/25/23 01:30 133/93 10/25/23 01:29 37.4 C 72 17 96 10/25/23 01:29 138/91 10/25/23 01:00 37.4 C 68 12 95 10/25/23 01:00 153/103 H 10/25/23 00:30 146/98 H 10/25/23 00:30 37.4 C 71 18 94 10/25/23 00:00 37.4 C 69 16 94 10/25/23 00:00 157/102 H 10/25/23 00:00 70 10/24/23 23:30 37.3 C 66 22 95 10/24/23 23:30 167/113 H 10/24/23 23:00 37.3 C 67 13 95 10/24/23 23:00 172/106 H 10/24/23 22:30 37.3 C 64 12 95 10/24/23 22:30 155/107 H 10/24/23 22:00 37.3 C 66 16 95 10/24/23 22:00 156/102 H 10/24/23 21:30 37.3 C 72 15 97 10/24/23 21:30 152/102 H 10/24/23 21:00 37.4 C 68 17 96 10/24/23 21:00 138/90 10/24/23 20:50 37.4 C 71 16 96 10/24/23 20:50 129/91 10/24/23 20:30 36.9 C 74 14 97 10/24/23 20:00 37.3 C 65 11 L 96 10/24/23 20:00 163/103 H Laboratory Results 10/25/23 05:09 10/24/23 08:05 Coding Level of Care Code 53829 SUB INP/OBS CARE 3/50MIN Diagnoses Alcohol addiction F10.20 Alcohol withdrawal F10.939 Hypomagnesemia E83.42 Rash and other nonspecific skin eruption R21 PTSD (post-traumatic stress disorder) F43.10
[2023-10-25] MEDS: predniSONE 10 MG TABLET PO SCH (08:26)
[2023-10-25 09:04] LABS: Albumin Level 3.7 gm/dl (3.4-5.0); Bilirubin,Total 8.1 mg/dl (0.2-1.0); Calcium 8.5 mg/dl (8.6-10.3); Potassium 3.7 mmol/L (3.5-5.1)
[2023-10-25 09:46] LABS: Albumin Globulin Ratio 1.2 (0.9-2); BUN Creatinine Ratio 14.1 (10-20); Creatinine Clr Calc Pharmacy 127.3 ml/min; Est GFR (African American) 137.9 ml/min; Globulin 3.1 gm/dl (2.5-4.0); Total Protein 6.8 gm/dl (6.0-8.3)
[2023-10-25] MEDS: POTASSIUM CHLORIDE CRTAB 20 MEQ TABCR PO ONE (09:53)
[2023-10-25] MEDS: diazePAM 5 MG TABLET PO SCH ×3 (09:53→17:03)
[2023-10-25] MEDS: LORazepam 3 MG in SYRINGE 1.5 ML IV PRN (12:01)
--- NOTE | 2023-10-25 14:14 | Hospitalist Progress Note ---
Date of Service October 25, 2023 Assessment & Plan (1) Alcohol withdrawal: (2) Delirium tremens: Plan: Heavy h/o alcohol use with last drink approximately 48 hours ago prior to presentation He was in rehab when he started to withdraw and was sent in. Required multiple doses of Ativan in the ED. Admitted to ICU for Precedex Off Precedex from October 24 at 11 PM. Initially was on phenobarbital Will switch him over to Valium 10 mg every 6 hours and wean down as tolerated Continue Ativan as needed Continue thiamine Transfer to floor. (3) Alcoholic hepatitis: Plan: Bilirubin elevated Liver enzymes with AST/XKR051/102 PT/INR within normal limits Maddrey score not elevated Continue monitor LFTs daily while inpatient. (4) Rash and other nonspecific skin eruption: Plan: He was recently seen in urgent care because of a dermatitis on his feet and was started on Bactrim, which appeared to cause this diffuse rash after 5 days of use. He was switched to Keflex and doxycycline by Dr. Coats on 10/06. When he went to [facility] he was started on prednisone per his . Prednisone is stopped Outpatient follow-up with dermatology (5) Tobacco use disorder: (6) Primary hypertension: Plan: Currently on metoprolol Continue for now (7) PTSD (post-traumatic stress disorder): Plan: history of this (8) Depression: Plan: history of this with need for hospitalization in the distant past. DVT proph: Lovenox Full Code Dispo-transferred out of ICU to. Patient continues to have significant alcohol withdrawal requiring close monitoring, IV Ativan as needed and Valium taper Time spent evaluating patient, direct bedside care, chart review, placing orders, interpretation of diagnostic studies, discussion with consultants, patient, and family members, as well as other required patient management activities is 50-minutes Please note the above document was generated using voice recognition software. It may contain grammatical, syntax or spelling errors. Any formal questions or concerns about the content, text or information contained within the body of this dictation should be directly addressed to the provider for clarification Admission and Anticipated Discharge Date Admission Date: October 23, 2023 Subjective Patient seen and examined at bedside. He is alert oriented x 3; he still tremulous. No hallucination or agitation. Review of Systems Review of Systems: All systems reviewed & are unremarkable except as noted in Subjective Physical Exam Physical Exam: Constitutional: Alert oriented x 3, tremors present for Respiratory: Bilateral vesicular breath Cardiovascular: RRR, no murmur, no edema Vessels: no JVD or carotid bruit Chest: normal inspection of chest Abdomen: Soft, nontender Musculoskeletal: no cyanosis or clubbing, extremities motor strength 5/5 Skin: no rashes, warm and dry normal turgor Neurologic: PERRL, grossly moves all extremity Results & Data Results & Data Vital Signs (Past 12 Hours) Vital Signs Temp Pulse Pulse Resp BP BP Pulse Ox 10/25/23 12:16 37.4 C 100 H 14 125/71 94 10/25/23 12:00 104 H 13 10/25/23 11:32 141/101 H 10/25/23 11:32 126 H 19 88 L 10/25/23 11:32 37.4 C 128 H 20 141/101 H 94 10/25/23 11:30 129 H 19 82 L 10/25/23 11:00 101 H 22 94 10/25/23 10:30 102 H 23 94 10/25/23 10:01 141/84 H 10/25/23 10:01 104 H 19 94 10/25/23 10:00 112 H 14 94 10/25/23 09:30 132/71 10/25/23 09:30 107 H 18 95 10/25/23 09:16 103 H 21 95 10/25/23 09:16 149/79 H 10/25/23 09:00 128 H 21 96 10/25/23 08:30 144/88 H 10/25/23 08:30 118 H 18 93 10/25/23 08:04 36.8 C 10/25/23 08:00 101 H 10/25/23 08:00 138/88 10/25/23 08:00 115 H 15 94 10/25/23 07:30 120 H 23 96 10/25/23 07:00 94 H 18 95 10/25/23 07:00 151/100 H 10/25/23 06:30 90 17 95 10/25/23 06:30 149/99 H 10/25/23 06:00 37.8 C H 98 H 19 97 10/25/23 06:00 132/99 10/25/23 05:30 37.7 C H 81 16 97 10/25/23 05:30 133/94 02/18/24 05:01 37.6 C H 82 24 97 10/25/23 05:01 127/94 10/25/23 05:00 37.7 C H 80 17 96 10/25/23 04:30 155/101 H 10/25/23 04:30 37.7 C H 81 18 96 10/25/23 04:01 143/100 H 10/25/23 04:01 37.6 C H 122 H 15 96 10/25/23 04:00 37.6 C H 88 21 98 10/25/23 03:30 37.5 C 79 16 97 10/25/23 03:30 127/86 10/25/23 03:00 37.4 C 65 14 96 10/25/23 03:00 147/100 H 10/25/23 02:30 37.2 C 63 13 97 10/25/23 02:30 147/96 H O2 Del Method 10/25/23 12:16 Room Air 10/25/23 12:00 10/25/23 11:32 10/25/23 11:32 10/25/23 11:32 Room Air 10/25/23 11:30 10/25/23 11:00 10/25/23 10:30 10/25/23 10:01 10/25/23 10:01 10/25/23 10:00 10/25/23 09:30 10/25/23 09:30 10/25/23 09:16 10/25/23 09:16 10/25/23 09:00 10/25/23 08:30 10/25/23 08:30 10/25/23 08:04 10/25/23 08:00 10/25/23 08:00 10/25/23 08:00 10/25/23 07:30 10/25/23 07:00 10/25/23 07:00 10/25/23 06:30 10/25/23 06:30 10/25/23 06:00 10/25/23 06:00 10/25/23 05:30 10/25/23 05:30 10/25/23 05:01 10/25/23 05:01 10/25/23 05:00 10/25/23 04:30 10/25/23 04:30 10/25/23 04:01 10/25/23 04:01 10/25/23 04:00 10/25/23 03:30 10/25/23 03:30 10/25/23 03:00 10/25/23 03:00 10/25/23 02:30 10/25/23 02:30 (1) Alcohol withdrawal Complication of substance-induced condition: with delirium Qualified Code(s): F10.931 - Alcohol use, unspecified with withdrawal delirium
[2023-10-25] MEDS ORDERED: PHENobarbitaL 30 MG TAB PO SCH (18:00)
[2023-10-26 07:59] LABS: Basophils # (auto) 0.07 K/uL (0.00-0.20); Eosinophils % (auto) 4.1 %; Hematocrit (blood only) 40.9 % (42.0-52.0); Hemoglobin 13.9 g/dl (14.0-18.0); Immature Granulocytes # (auto) 0.02 K/uL (0.01-0.20); Immature Granulocytes % (auto) 0.3 %; Lymphocytes # (auto) 0.87 K/uL (1.20-3.40); Mean Corpuscular Hemoglobin 32.6 pg (25.0-34.0); Mean Corpuscular Volume 95.8 fL (80.0-100.0); Mean Platelet Volume 12.3 fL (9.4-12.4); Monocytes # (auto) 1.29 K/uL (0.11-0.59); Monocytes % (auto) 17.8 %; Neutrophils # (auto) 4.71 K/uL (1.40-6.50); Neutrophils % (auto) 64.8 %; Platelet Count 96 K/uL (130-400); RDW Coefficient of Variation 13.3 % (11.5-14.5); RDW Standard Deviation 46.9 fL (36.4-46.3); Red Blood Count 4.27 M/uL (4.70-6.10); White Blood Count 7.26 K/ul (4.8-10.8)
[2023-10-26 08:29] LABS: Albumin Globulin Ratio 1.2 (0.9-2); Albumin Level 3.8 gm/dl (3.4-5.0); BUN Creatinine Ratio 17.1 (10-20); Bilirubin,Total 7.2 mg/dl (0.2-1.0); Calcium 8.9 mg/dl (8.6-10.3); Creatinine Clr Calc Pharmacy 118.9 ml/min; Est GFR (African American) 134.1 ml/min; Est GFR (Non-African American) 115.7 ml/min; Globulin 3.3 gm/dl (2.5-4.0); Phosphorus 3.7 mg/dl (2.5-4.9); Potassium 3.9 mmol/L (3.5-5.1); Total Protein 7.1 gm/dl (6.0-8.3)
[2023-10-26] MEDS: diazePAM 5 MG TABLET PO SCH (09:17)
[2023-10-26] MEDS: THIAMINE HCL 100 MG TAB PO SCH (09:50)
[2023-10-26] MEDS: FOLIC ACID 1 MG TAB PO SCH (09:50)
--- NOTE | 2023-10-26 12:11 | Hospitalist Progress Note ---
Date of Service October 26, 2023 Assessment & Plan (1) Alcohol withdrawal: (2) Delirium tremens: Plan: Heavy h/o alcohol use with last drink approximately 48 hours ago prior to presentation He was in rehab when he started to withdraw and was sent in. Required multiple doses of Ativan in the ED. Admitted to ICU for Precedex Off Precedex from October 24 at 11 PM. Patient was transferred out of ICU on October 25 Initially was on phenobarbital Currently on Valium; will decrease the dose to 5 mg every 6 hours. Hold if patient is sleeping/lethargic Continue Ativan as needed Continue thiamine (3) Alcoholic hepatitis: Plan: Bilirubin elevated Liver enzymes with AST/RHP397/102 PT/INR within normal limits Maddrey score not elevated Continue monitor LFTs daily while inpatient. Will need follow-up with hepatology as outpatient (4) Rash and other nonspecific skin eruption: Plan: He was recently seen in urgent care because of a dermatitis on his feet and was started on Bactrim, which appeared to cause this diffuse rash after 5 days of use. He was switched to Keflex and doxycycline by Dr. Coats on 10/06. [facility] he was started on prednisone per his . Prednisone is stopped Outpatient follow-up with dermatology (5) Tobacco use disorder: (6) Primary hypertension: Plan: Currently on metoprolol Continue for now (7) PTSD (post-traumatic stress disorder): Plan: history of this (8) Depression: Plan: history of this with need for hospitalization in the distant past. DVT proph: Lovenox Full Code Dispo- Patient continues to have significant alcohol withdrawal requiring close monitoring, IV Ativan as needed and Valium taper Time spent evaluating patient, direct bedside care, chart review, placing orders, interpretation of diagnostic studies, discussion with consultants, patient, and family members, as well as other required patient management activities is 50-minutes Please note the above document was generated using voice recognition software. It may contain grammatical, syntax or spelling errors. Any formal questions or concerns about the content, text or information contained within the body of this dictation should be directly addressed to the provider for clarification Admission and Anticipated Discharge Date Admission Date: October 23, 2023 Subjective Patient seen and examined at bedside. He is alert oriented x 3; not in distress No tremors or hallucinations. Review of Systems Review of Systems: All systems reviewed & are unremarkable except as noted in Subjective Physical Exam Physical Exam: Constitutional: Alert oriented x 3, tremors improved Respiratory: Bilateral vesicular breath Cardiovascular: RRR, no murmur, no edema Vessels: no JVD or carotid bruit Chest: normal inspection of chest Abdomen: Soft, nontender Musculoskeletal: no cyanosis or clubbing, extremities motor strength 5/5 Skin: no rashes, warm and dry normal turgor Neurologic: PERRL, grossly moves all extremity Results & Data Results & Data Vital Signs (Past 12 Hours) Vital Signs Temp Pulse Pulse Resp BP Pulse Ox O2 Del Method 10/26/23 11:58 36.5 C 84 16 132/88 98 Room Air 10/26/23 07:49 75 10/26/23 07:47 36.7 C 76 17 149/98 H 98 Room Air 10/26/23 03:54 37.6 C H 83 18 142/89 H 97 Room Air (1) Alcohol withdrawal Complication of substance-induced condition: with delirium Qualified Code(s): F10.931 - Alcohol use, unspecified with withdrawal delirium
[2023-10-26 14:12] LABS: 7-Aminoclonaz, Confirm NEGATIVE ng/mL (<25); Amobarbital, Urine Conf NEGATIVE ng/mL (<100); Butalbital, Urine NEGATIVE ng/mL (<100); Hydro-Alp Ur, GC/MS NEGATIVE ng/mL (<25); Hydroxyethylflurazepam, Conf NEGATIVE ng/mL (<50); Hydroxymidazolam Ur, GC/MS NEGATIVE ng/mL (<50); Hydroxytriazolam NEGATIVE ng/mL (<50); Lorazepam, Ur GC/MS >2000 ng/mL (<50); Nordiazepam, Confirm 157 ng/mL (<50); Oxazepam Ur, GC/MS 65 ng/mL (<50); Pentobarbital, Urine Conf NEGATIVE ng/mL (<100); Phenobarbital, Urine 3360 ng/mL (<100); Secobarbital, Urine Conf NEGATIVE ng/mL (<100); Temazepam, Confirm 735 ng/mL (<50)
[2023-10-27] MEDS ORDERED: PHENobarbitaL 30 MG TAB PO SCH (06:00)
[2023-10-27 08:02] LABS: Albumin Globulin Ratio 1.1 (0.9-2); BUN Creatinine Ratio 23.1 (10-20); Bilirubin,Total 7.7 mg/dl (0.2-1.0); Calcium 9.4 mg/dl (8.6-10.3); Creatinine Clr Calc Pharmacy 115.9 ml/min; Est GFR (African American) 132.7 ml/min; Est GFR (Non-African American) 114.5 ml/min; Globulin 3.5 gm/dl (2.5-4.0); Potassium 3.7 mmol/L (3.5-5.1); Total Protein 7.5 gm/dl (6.0-8.3)
[2023-10-27] MEDS: diphenhydrAMINE Capsule 25 MG CAP PO SCH (10:08)
[2023-10-27] MEDS: CALAMINE/PRAMOXINE LOTION 180 APPLN/180 ML BTL EXT SCH (10:09)
[2023-10-27] MEDS: diazePAM 5 MG TABLET PO SCH (11:05)
--- NOTE | 2023-10-27 14:25 | Hospitalist Progress Note ---
Date of Service October 27, 2023 Assessment & Plan (1) Alcohol withdrawal: (2) Delirium tremens: Plan: Heavy h/o alcohol use with last drink approximately 48 hours ago prior to presentation He was in rehab when he started to withdraw and was sent in. Required multiple doses of Ativan in the ED. Admitted to ICU for Precedex Off Precedex from October 24 at 11 PM. Patient was transferred out of ICU on October 25 Initially was on phenobarbital Currently on Valium; will decrease the dose to 5 mg every 12 hours. Hold if patient is sleeping/lethargic Continue Ativan as needed Continue thiamine (3) Alcoholic hepatitis: Plan: Bilirubin elevated Liver enzymes with AST/RYB016/102 PT/INR within normal limits Maddrey score not elevated Continue monitor LFTs daily while inpatient. Will need follow-up with hepatology as outpatient (4) Rash and other nonspecific skin eruption: Plan: He was recently seen in urgent care because of a dermatitis on his feet and was started on Bactrim, which appeared to cause this diffuse rash after 5 days of use. He was switched to Keflex and doxycycline by Dr. Coats on 10/06. When he went to [facility] he was started on prednisone per his . Prednisone is stopped Outpatient follow-up with dermatology (5) Tobacco use disorder: (6) Primary hypertension: Plan: Currently on metoprolol Continue for now (7) PTSD (post-traumatic stress disorder): Plan: history of this (8) Depression: Plan: history of this with need for hospitalization in the distant past. DVT proph: Lovenox Full Code Dispo- Patient continues to have significant alcohol withdrawal requiring close monitoring, IV Ativan as needed and Valium taper. Possible DC in a.m. Time spent evaluating patient, direct bedside care, chart review, placing orders, interpretation of diagnostic studies, discussion with consultants, patient, and family members, as well as other required patient management activities is 50-minutes Please note the above document was generated using voice recognition software. It may contain grammatical, syntax or spelling errors. Any formal questions or concerns about the content, text or information contained within the body of this dictation should be directly addressed to the provider for clarification Admission and Anticipated Discharge Date Admission Date: October 23, 2023 Subjective Patient seen and examined at bedside. He is comfortable lying on the bed; not in any distress. Withdrawal symptoms minimal. Review of Systems Review of Systems: All systems reviewed & are unremarkable except as noted in Subjective Physical Exam Physical Exam: Constitutional: Alert oriented x 3, tremors improved Respiratory: Bilateral vesicular breath Cardiovascular: RRR, no murmur, no edema Vessels: no JVD or carotid bruit Chest: normal inspection of chest Abdomen: Soft, nontender Musculoskeletal: no cyanosis or clubbing, extremities motor strength 5/5 Skin: no rashes, warm and dry normal turgor Neurologic: PERRL, grossly moves all extremity Results & Data Results & Data Vital Signs (Past 12 Hours) Vital Signs Temp Pulse Pulse Resp BP Pulse Ox O2 Del Method 10/27/23 11:23 37.3 C 83 18 120/79 96 Room Air 10/27/23 07:57 37.1 C 83 18 119/81 97 Room Air 10/27/23 07:27 88 10/27/23 03:00 36.9 C 89 18 119/80 96 Room Air (1) Alcohol withdrawal Complication of substance-induced condition: with delirium Qualified Code(s): F10.931 - Alcohol use, unspecified with withdrawal delirium
[2023-10-28] MEDS: ACETAMINOPHEN 325 MG TAB PO PRN (08:03)
[2023-10-28 08:40] LABS: Albumin Globulin Ratio 1.2 (0.9-2); Albumin Level 3.9 gm/dl (3.4-5.0); BUN Creatinine Ratio 23.9 (10-20); Bilirubin,Total 7.5 mg/dl (0.2-1.0); Calcium 9.4 mg/dl (8.6-10.3); Creatinine Clr Calc Pharmacy 134.9 ml/min; Est GFR (African American) 141.3 ml/min; Est GFR (Non-African American) 121.9 ml/min; Globulin 3.3 gm/dl (2.5-4.0); Potassium 4.2 mmol/L (3.5-5.1); Total Protein 7.2 gm/dl (6.0-8.3)
--- NOTE | 2023-10-28 11:36 | Discharge Summary ---
Date of Service October 28, 2023 Admission HPI Per Admitting Provider 38 yo M with alcoholism presents after developing symptoms of alcohol withdrawal at [facility] rehab. He was admitted to rehab on Thu and reports that his last drink was on . He denies any smoking or drug use. He is delirious and combative having now received multiple doses of Ativan making him an unreliable historian. His body is covered in a scattered erythematous rash including on his trunk including his front and back and on his arms and legs including his feet. He reports having recently taken bactrim (has an allergy to this listed-hives) which was dispensed on 10/01 per the outside dispensing history. His showed up at the end of the exam and confirmed that he was started on prednisone on Thu at [facility] for this rash which is two weeks old and possibly related to Bactrim use at the end of September. He does suffer from a chronic dermatitis to his feet. He received Ativan IV initially 2/2 delirium symptoms. He was given 3mg IV and then another 2mg IV around 5p and 6:30p, respectively. The second dose was administered after he was combative with a RN. Around 7:30p he was still very agitated, hallucinating and was very tremulous and anxious with stacatto speech. He was given another 5mg IV. I discussed the case and potential treatment options wtih both the contract designer ICU provider and the ER physician. Admission order to the ICU was placed. After 30 minutes, he was still pulling out his IVs shaky and tremulous. was at bedside and so was security. An additional 5mg IV Ativan was administered while awaiting a bed in the ICU. I explained the situation to his who was updated on the plan and verbalized understanding. All questions were answered to her satsfaction. I did review the outpatient record Admission Exam Per Admitting Provider CONSTITUTIONAL: WNWD, vitals 145/106, HR 105bpm, RR 22, T 36.9C, 93% on RA, somewhat combative/agitated and tremulousness surrounded by security guards there to try and calm the situation. Patient's speech was intact with voice shaky, he is delirious and occasionally hallucinates, oriented to place and self but not time (said it is 2003). Actively trying to remove his medical devices. Limited ability to examine 2/2 to these issues. EYES: normal conjunctivae, no scleral icterus ENT: external ear and nose normal, MMM NECK: trachea midline RESPIRATORY: clear to auscultation bilaterally, no crackles, rales or wheezes, normal respiratory effort CARDIOVASCULAR: tachy rate and reg rhythm, S1 and 2 heard without murmurs, gall ops or rubs, no JVD, no peripheral edema CHEST: inspection of chest was normal GASTROINTESTINAL: soft, nontender, ND, no guarding MUSCULOSKELETAL: strength 5/5 throughout, head is normocephalic and atraumatic SKIN: warm and dry, + rash as noted in HPI. NEUROLOGIC: CN 2-12 grossly intact, no sensory deficit, normal cognition, normal speech which is pressured, appears anxious and shaky, tremulous PSYCHIATRIC: alert intermittently uncooperative, intermittently combative with staff Principal Diagnosis Alcohol withdrawal Delirium tremens Discharge Exam Constitutional: Alert oriented x 3, tremors improved Respiratory: Bilateral vesicular breath Cardiovascular: RRR, no murmur, no edema Vessels: no JVD or carotid bruit Chest: normal inspection of chest Abdomen: Soft, nontender Musculoskeletal: no cyanosis or clubbing, extremities motor strength 5/5 Skin: no rashes, warm and dry normal turgor Neurologic: PERRL, grossly moves all extremity Discharge Data Allergies Allergy/AdvReac Type Severity Reaction Status Date / Time sulfamethoxazole Allergy Intermediate Hives Verified 10/23/23 18:01 [From Bactrim] trimethoprim [From Bactrim] Allergy Intermediate Hives Verified 10/23/23 18:01 Consultations 10/23/23 18:57 ED Decision to Admit Stat 10/23/23 19:34 Consult Book Sewer Routine Hospital Course (1) Alcohol withdrawal: (2) Delirium tremens: Heavy h/o alcohol use with last drink approximately 48 hours ago prior to presentation He was in rehab when he started to withdraw and was sent in. Required multiple doses of Ativan in the ED. Admitted to ICU for Precedex Off Precedex from October 24 at 11 PM. Patient was transferred out of ICU on October 25 Initially was on phenobarbital Patient was placed on Valium; gradually down trended. At discharge, he was placed on 5 mg Valium every 6 hours to be titrated off gradually. Patient was discharged back to the rehab. (3) Alcoholic hepatitis: Bilirubin elevated Liver enzymes with AST/GHV502/102 PT/INR within normal limits Maddrey score not elevated Continue monitor LFTs daily while inpatient. Will need follow-up with hepatology as outpatient (4) Rash and other nonspecific skin eruption: He was recently seen in urgent care because of a dermatitis on his feet and was started on Bactrim, which appeared to cause this diffuse rash after 5 days of use. He was switched to Keflex and doxycycline by Dr. Coats on 10/06. When he went to [facility] he was started on prednisone per his . Prednisone is stopped Outpatient follow-up with dermatology (5) Tobacco use disorder: (6) Primary hypertension: Currently on metoprolol Continue for now (7) PTSD (post-traumatic stress disorder): history of this (8) Depression: Please note the above document was generated using voice recognition software. It may contain grammatical, syntax or spelling errors. Any formal questions or concerns about the content, text or information contained within the body of this dictation should be directly addressed to the provider for clarification Total Time Total Time Spent Total Time Spent (In Minutes): 45 Total Time Includes: Examination of the Patient, Discharge Planning, Medication Reconciliation, Communication With Other Providers and Other Discharge Plan Discharge Items Patient Disposition: Home - Self-Care Reason For Visit: ALCOHOL WITHDRAWAL Discharge Diagnosis: Alcohol withdrawal Activity: Resume your previous activity Non-emergency contact: Primary Care Provider Call non-emergency contact if: you have any medication questions and your symptoms worsen Follow-up/Referrals: [facility] [Primary Care Provider] - Diet: Regular Addtl Attending Provider Instructions: You were admitted to the hospital due to alcohol withdrawal. You underwent detoxification during the hospitalization. The Valium doses modified as below: 1) Take Valium 5 mg 4 times a day on day 1 2) Take Valium 5 mg 3 times a day on day 2 3) Take Valium 5 mg 2 times a day on day 3 4) Take Valium 5 mg 1 times a day on day 4 Please follow-up with your primary care doctor after discharge. You need to also follow-up with dermatology for management of the rashes. You need to have repeat liver function test done in a week to follow-up on the LFTs. Pending Studies at Discharge: No Stand-Alone Forms: Clipsure, Smoking Cessation Medications and DC Order Prescriptions: Continued triamcinolone acetonide 0.1 % cream 1 applic topical BID multivitamin Tablet 1 tab PO DAILY acetaminophen [Tylenol] 325 mg Tablet 650 mg PO QID PRN (Reason: PAIN/HEADACHE) diphenhydramine HCl 50 mg Capsule 50 mg PO Q6H MDD 4 DOSES/24 HOURS PRN (Reason: ALLERGIES/RASH) ondansetron HCl 8 mg Tablet 8 mg PO Q8H PRN (Reason: NAUSEA/VOMITING) vitamin A and D Ointment 1 applic TOPICAL QID PRN (Reason: SKIN IRRITATION/PROTECTION) loperamide [Imodium A-D] 2 mg Tablet 4 mg PO BID PRN (Reason: Diarrhea) permethrin [Elimite] 5 % Cream 1 applic TOPICAL DAILY PRN (Reason: RASH ON FEET & HEAD) Rx Instructions: WASH OFF AFTER 12 HOURS. cyanocobalamin (vitamin B-12) [Vitamin B-12] 1,000 mcg Tablet 1,000 mcg PO DAILY thiamine HCl (vitamin B1) [Vitamin B-1] 100 mg Tablet 100 mg PO DAILY hydroxyzine pamoate 50 mg Capsule 50 mg PO TID MDD 3 DOSES/24 HOURS PRN (Reason: Anxiety) bacitracin 500 unit/gram Ointment 1 applic TOPICAL QID PRN (Reason: SKIN INFECTION/ABRASION) famotidine 20 mg Tablet 20 mg PO DAILY PRN (Reason: UPSET STOMACH/INDIGESTION) magnesium hydroxide [Milk of Magnesia] 400 mg/5 mL Suspension 30 ml PO DAILY PRN (Reason: Constipation) dicyclomine 20 mg Tablet 20 mg PO TID PRN (Reason: GI CRAMPS/SPASMS) hydrocortisone 1 % Cream 1 applic TOPICAL BID PRN (Reason: ITCHING/RASH) diphenhydramine HCl [Complete Allergy] 25 mg Tablet 25 mg PO Q6H PRN (Reason: ALLERGIES/RASH) docusate sodium 100 mg Capsule 100 mg PO DAILY PRN (Reason: Constipation) omeprazole 20 mg Capsule,Delayed Release(Dr/Ec) 20 mg PO DAILY magnesium sulfate (bulk) [Epsom Salt] 100 % Crystals 1 applic TOPICAL BID Rx Instructions: START 10/24/23 FOR 7 DAYS, ENDS 10/30/23. SOAK BODY PART TWICE DAILY FOR RASH folic acid 1 mg Tablet 1 mg PO DAILY calcium carbonate 500 mg calcium (1,250 mg) Tablet,Chewable 1,000 mg PO QID PRN (Reason: Indigestion) metoprolol succinate 25 mg tablet extended release 24 hr 25 mg PO QAM alum-mag hydroxide-simeth 200-200-20 mg/5 mL Suspension 20 ml PO BID PRN (Reason: INDIGESTION/GERD) diazepam [Valium] 10 mg Tablet 10 mg PO Q8H PRN (Reason: DETOX) Rx Instructions: STARTED 10/21/23, ENDS 10/24/23. CALL MD IF 3 DOSES GIVEN WITH IN 2 HRS. HOLD FOR SEDATION. ibuprofen 600 mg Tablet 600 mg PO Q6H PRN (Reason: PAIN/HEADACHE) polyethylene glycol 3350 [Miralax] 17 gram/dose Powder 17 g PO DAILY PRN (Reason: Constipation) clotrimazole 1 % Cream 1 applic TOPICAL BID Rx Instructions: STARTED 10/22/23 FOR 10 DAYS FOR RASH loratadine [Claritin] 10 mg Tablet 10 mg PO DAILY PRN (Reason: CONGESTION/ALLERGIES) simethicone 80 mg Tablet,Chewable 160 mg PO BID PRN (Reason: GAS/CRAMPS) eucalyptus-menthol Lozenge 1 artemio MUCOUS MEMBRANE Q2H PRN (Reason: Sore Throat) guaifenesin [Mucus Relief] 400 mg Tablet 400 mg PO Q6H PRN (Reason: COUGH/MUCOUS) melatonin 5 mg Tablet 5 mg PO HS PRN (Reason: Sleep) camphor-menthol 0.2-3.5 % Gel 1 applic TOPICAL QID PRN (Reason: Muscle Pain) Rx Instructions: rub in gently and completely naloxone 4 mg/actuation Ocate,Non-Aerosol 1 mg INTRANASAL DAILY PRN (Reason: OPIATE OVERDOSE) Changed diazepam [Valium] 10 mg Tablet See Taper PO DAILY Qty: 10 0RF Taper: Taper, Blank 5 mg Q6H for 1 Day 5 mg Q8H for 1 Day 5 mg EVERY TWELVE HOURS for 1 Day 5 mg DAILY for 1 Day Discontinued clonidine HCl 0.1 mg Tablet 0.1 mg PO TID MDD 3 DOSES/24 HOURS PRN (Reason: ANXIETY/RESTLESSNESS/PULSE>70/BP>100/70) doxycycline hyclate 100 mg Capsule 100 mg PO BID Rx Instructions: WILL START 10/24/23 FOR 14 DAYS, STOPS 11/06/23. prednisone 20 mg Tablet 20 mg PO DAILY Rx Instructions: STARTED 10/21/23 FOR 5 DAYS Excedrin Extra Strength 250-250-65 mg Tablet 2 tab PO DAILY MDD 2 TABS/DAILY PRN (Reason: Headache) Discharge Orders: Discharge Order (Routine); Ordered 10/28/23 Ordered By: Lino Louis Admission Data Admit Date/Time: 10/23/23 19:00 Attending Provider: Lino Louis Admit Provider: Ana Cristina Amaro Primary Care Provider: [facility] Other Providers: Ana Cristina Amaro; Sudheer Bright Other Interventions: Discharge Summary Assessment (RN) Last Done: 10/28/23 10:36
== END 2023-10-28 11:55 | disposition alcohol treatment (31) | DRG 897 ==
LOC: ED 15:51 → EDINP 19:00 → SUATTDRO 19:00 → 1E 22:33 → 2N 10-25 16:04
DX: F10.231 Alcohol dependence with withdrawal delirium; F43.10 Post-traumatic stress disorder, unspecified; Z87.891 Personal history of nicotine dependence; E83.42 Hypomagnesemia; Z88.2 Allergy status to sulfonamides; R33.9 Retention of urine, unspecified; I10 Essential (primary) hypertension; F32.A Depression, unspecified; F41.9 Anxiety disorder, unspecified; E80.6 Other disorders of bilirubin metabolism; K70.10 Alcoholic hepatitis without ascites; L30.9 Dermatitis, unspecified